=== PATIENT | male | born 1960 | race Caucasian/White ===

== ENCOUNTER 2019-06-12 01:57 | Inpatient (IN) | payer SELFPAY ==
[2019-06-12] MEDS ORDERED: FENTANYL CITR 100 MCG/2 ML ONE (02:16)
[2019-06-12 02:28] LABS: Absolute Lymphocytes (CBC) 2.4 K/uL (0.7-4.9); Basophils % 0.3 % (0-1.3); Hematocrit 46.2 % (39.6-49.0); Lymphocytes % 32.2 % (15.3-44.8); MPV 8.5 fL (7.6-11.3); RBC Red Blood Cell Count 5.22 M/uL (4.33-5.43)
[2019-06-12 02:31] LABS: Protime INR 0.91
[2019-06-12 02:52] LABS: ALT/SGPT 35 U/L (12-78); AST/SGOT 21 U/L (15-37); Alkaline Phosphatase 85 U/L (45-117); BUN Blood Urea Nitrogen 15 mg/dL (7-18); Bicarbonate 27 mmol/L (21-32); Bilirubin Direct 0.2 mg/dL (0-0.2); Bilirubin Total 0.5 mg/dL (0.2-1.0); Glucose Level 117 mg/dL (74-106); Magnesium 2.4 mg/dL (1.8-2.4); NT PRO-BNP 52 pg/mL (<125); Potassium 3.8 mmol/L (3.5-5.1); Protein, Total 7.9 g/dL (6.4-8.2); Sodium Level 140 mmol/L (136-145); Troponin (Emerg Dept Use Only) < 0.02 ng/mL (0.0-0.045)
[2019-06-12] MEDS ORDERED: ASPIRIN 81 MG CHEWABLE TABLET ONE (03:06)
[2019-06-12 03:51] LABS: Urine Blood NEGATIVE (NEG); Urine Glucose NEGATIVE (NEG); Urine pH 5.5 (5.0-7.0)
[2019-06-12 03:52] LABS: Urine Protein NEGATIVE (NEG)
[2019-06-12] MEDS ORDERED: HYDROMORPHONE HCL 1 MG/ML INJ ONE (04:06)
[2019-06-12 04:16] LABS: Barbiturates NEGATIVE (NEGATIVE); Benzodiazepines NEGATIVE (NEGATIVE); Cocaine POSITIVE (NEGATIVE); METHAMPHETAM NEGATIVE (NEGATIVE); Methadone NEGATIVE (NEGATIVE); Opiates NEGATIVE (NEGATIVE); Phencyclidine NEGATIVE (NEGATIVE); THC Cannibis NEGATIVE (NEGATIVE)
[2019-06-12 04:22] LABS: Urine Bacteria <20 /HPF (NONE SEEN); Urine RBC NONE SEEN /HPF (NONE SEEN)
[2019-06-12 04:23] LABS: Urine Culture Reflex Order NOT NEEDED
--- NOTE | 2019-06-12 05:41 | ER ---
Nurse's Notes [facility] Name: Jose Dickson Age: 58 yrs Sex: Male : 1960 Arrival Date: 06/12/2019 Time: 02:00 Bed 5 Private MD: Diagnosis: Chest Pain;Cocaine abuse Presentation: 06/12 02:10 Presenting complaint: Patient states: I am having chest pain that started 30 minutes jb4 ago. It feels like a heart attack. 02:10 Transition of care: patient was not received from another setting of care. Onset of jb4 symptoms was June 12, 2019. Risk Assessment: Do you want to hurt yourself or someone else? Patient reports no desire to harm self or others. Initial Sepsis Screen: Does the patient meet any 2 criteria? No. Patient's initial sepsis screen is negative. Does the patient have a suspected source of infection? No. Patient's initial sepsis screen is negative. Care prior to arrival: None. 02:10 Method Of Arrival: Wheelchair jb4 02:10 Acuity: CARLOS 2 jb4 Historical: - Allergies: 02:10 No Known Allergies; jb4 - Home Meds: 02:10 None [Active]; jb4 - PMHx: 02:10 Myocardial infarction; jb4 - PSHx: 02:10 Heart stents; jb4 - Immunization history:: Adult Immunizations up to date. - Social history:: Smoking status: Patient uses tobacco products, 1/2>/day, Patient uses alcohol, but reports only rare drinking. - Ebola Screening: : No symptoms or risks identified at this time. - Family history:: not pertinent. - Hospitalizations: : No recent hospitalization is reported. Screenin:10 Abuse screen: Denies threats or abuse. Nutritional screening: No deficits noted. jb4 Tuberculosis screening: No symptoms or risk factors identified. Fall Risk IV access (20 points). Total Eppesron Fall Scale indicates No Risk (0-24 pts). Assessment: 02:10 General: Appears in no apparent distress. comfortable, Behavior is cooperative, jb4 anxious. Pain: Complains of pain in chest Pain radiates to left arm Pain currently is 10 out of 10 on a pain scale. Quality of pain is described as pressure, Pain began 30 min ago. Neuro: Level of Consciousness is awake, alert, obeys commands, Oriented to person, place, time, situation. Cardiovascular: Patient's skin is warm and dry. Rhythm is sinus rhythm. Respiratory: Airway is patent Respiratory effort is even, unlabored, Respiratory pattern is regular, symmetrical. GI: No deficits noted. No signs and/or symptoms were reported involving the gastrointestinal system. : No deficits noted. No signs and/or symptoms were reported regarding the genitourinary system. EENT: No deficits noted. No signs and/or symptoms were reported regarding the EENT system. Derm: Skin is intact, Skin is pink, warm \T\ dry. Musculoskeletal: Circulation, motion, and sensation intact. Range of motion: intact in all extremities. 03:11 Reassessment: Patient appears in no apparent distress at this time. Patient and/or jb4 family updated on plan of care and expected duration. Pain level reassessed. Patient is alert, oriented x 3, equal unlabored respirations, skin warm/dry/pink. Patient states feeling better. 04:21 Reassessment: Patient appears in no apparent distress at this time. Patient and/or jb4 family updated on plan of care and expected duration. Pain level reassessed. Patient is alert, oriented x 3, equal unlabored respirations, skin warm/dry/pink. 05:30 Reassessment: Patient appears in no apparent distress at this time. Patient and/or jb4 family updated on plan of care and expected duration. Pain level reassessed. Patient is alert, oriented x 3, equal unlabored respirations, skin warm/dry/pink. Patient states feeling better. 06:00 Reassessment: Patient appears in no apparent distress at this time. Patient and/or jb4 family updated on plan of care and expected duration. Pain level reassessed. Patient is alert, oriented x 3, equal unlabored respirations, skin warm/dry/pink. Vital Signs: 02:10 BP 175 / 112; Pulse 72; Resp 19; Temp 98.0(TE); Pulse Ox 99% on R/A; Weight 99.79 kg jb4 (R); Height 6 ft. 0 in. (182.88 cm); Pain 05/13; 03:11 BP 161 / 102; Pulse 64; Resp 19; Pulse Ox 95% on R/A; jb4 04:09 BP 157 / 100; Pulse 58; Resp 16; Pulse Ox 96% on R/A; jb4 06:00 BP 156 / 94; Pulse 67; Resp 16; Pulse Ox 98% on R/A; jb4 02:10 Body Mass Index 29.84 (99.79 kg, 182.88 cm) jb4 ED Course: 02:00 Patient arrived in ED. cf2 02:04 Owen Barksdale MD is Attending Physician. wa 02:10 Arm band placed on left wrist. jb4 02:10 Patient has correct armband on for positive identification. Placed in gown. Bed in low jb4 position. Call light in reach. Side rails up X 1. assistant chief engineer on. Pulse ox on. NIBP on. 02:10 Patient maintains SpO2 saturation greater than 95% on room air. jb4 02:10 Initial lab(s) drawn, by me, sent to lab. Inserted saline lock: 18 gauge in right jb4 antecubital area, using aseptic technique. Blood collected. 02:13 Clif Porras RN is Primary Nurse. jb4 02:15 Triage completed. jb4 05:39 James Ramirez MD is Hospitalizing Provider. 06:13 No provider procedures requiring assistance completed. Patient admitted, IV remains in jb4 place. Administered Medications: 02:20 Drug: fentaNYL (PF) 75 mcg Route: IVP; Site: right antecubital; aa1 02:54 Follow up: Response: No adverse reaction; Pain is decreased; RASS: Alert and Calm (0) jb4 03:09 Drug: Aspirin Chewable Tablet 324 mg Route: PO; jb4 03:30 Follow up: Response: No adverse reaction jb4 04:14 Drug: Dilaudid 1 mg Route: IVP; Site: right antecubital; jb4 04:44 Follow up: Response: No adverse reaction; Pain is decreased; RASS: Alert and Calm (0) jb4 06:02 Drug: Lovenox 100 mg Route: Sub-Q; Site: right lower abdomen; jb4 06:07 Follow up: Response: No adverse reaction jb4 06:08 Not Given (Patient Refused): Zofran 4 mg IVP once; over 2 minutes jb4 Outcome: 05:41 Decision to Hospitalize by Provider. wa 06:14 Admitted to Tele accompanied by tech, via wheelchair, room 407, with chart, Report jb4 called to KRISTEN Fong 06:14 Condition: stable 06:14 Discharge instructions given to patient, family, Instructed on the need for admit, Demonstrated understanding of instructions. 06:22 Patient left the ED. jb4 Signatures: Erika Ovalles RN RN aa1 Clif Porras RN RN jb4 Owen Barksdale MD MD wa [place], [place] cf2 Corrections: (The following items were deleted from the chart) 03:13 03:11 BP 161 / 102; Pulse 64bpm; Resp 10bpm; Pulse Ox 95% RA; jb4 jb4
--- NOTE | 2019-06-12 05:42 | EDPHYS ---
Physician Documentation [facility] Name: Jose Dickson Age: 58 yrs Sex: Male : 1960 Arrival Date: 06/12/2019 Time: 02:00 Bed 5 Private MD: ED Physician Owen Barksdale HPI: 06/12 03:28 This 58 yrs old Male presents to ER via Wheelchair with complaints of Chest wa Pain. 03:28 The patient or guardian reports chest pain that is located primarily in the substernal wa area. Onset: 30 minute(s) ago. The pain does not radiate. Associated signs and symptoms: Pertinent positives: shortness of breath, Pertinent negatives: abdominal pain, cough, diaphoresis, dizziness, lightheadedness. The chest pain is described as sharp. Duration: The patient or guardian reports a single episode, that is still ongoing. Modifying factors: The symptoms are alleviated by. 03:33 Severity of pain: At its worst the pain was severe in the emergency department the pain wa is unchanged. The patient has experienced similar episodes in the past, a few times. The patient has not recently seen a physician. 58 yo M. states believes he's having a heart attack. h/o stents. has not taken any meds for over 1 year. pain began 30 minutes prior to arrival. . Historical: - Allergies: 02:10 No Known Allergies; jb4 - Home Meds: 02:10 None [Active]; jb4 - PMHx: 02:10 Myocardial infarction; jb4 - PSHx: 02:10 Heart stents; jb4 - Immunization history:: Adult Immunizations up to date. - Social history:: Smoking status: Patient uses tobacco products, 1/2>/day, Patient uses alcohol, but reports only rare drinking. - Ebola Screening: : No symptoms or risks identified at this time. - Family history:: not pertinent. - Hospitalizations: : No recent hospitalization is reported. ROS: 03:34 Constitutional: Negative for fever, chills, and weight loss, Eyes: Negative for injury, wa pain, redness, and discharge, ENT: Negative for injury, pain, and discharge, Neck: Negative for injury, pain, and swelling, Abdomen/GI: Negative for abdominal pain, nausea, vomiting, diarrhea, and constipation, Back: Negative for injury and pain, : Negative for injury, bleeding, discharge, and swelling, MS/Extremity: Negative for injury and deformity, Skin: Negative for injury, rash, and discoloration, Neuro: Negative for headache, weakness, numbness, tingling, and seizure, Psych: Negative for depression, anxiety, suicide ideation, homicidal ideation, and hallucinations. 03:34 Cardiovascular: Positive for chest pain, Negative for edema, orthopnea, palpitations, paroxysmal nocturnal dyspnea. 03:34 Respiratory: Positive for shortness of breath, Negative for hemoptysis, pleurisy. Exam: 03:35 Constitutional: This is a well developed, well nourished patient who is awake, alert, wa and in no acute distress. Head/Face: Normocephalic, atraumatic. Eyes: Pupils equal round and reactive to light, extra-ocular motions intact. Lids and lashes normal. Conjunctiva and sclera are non-icteric and not injected. Cornea within normal limits. Periorbital areas with no swelling, redness, or edema. ENT: Nares patent. No nasal discharge, no septal abnormalities noted. Tympanic membranes are normal and external auditory canals are clear. Oropharynx with no redness, swelling, or masses, exudates, or evidence of obstruction, uvula midline. Mucous membranes moist. Neck: Trachea midline, no thyromegaly or masses palpated, and no cervical lymphadenopathy. Supple, full range of motion without nuchal rigidity, or vertebral point tenderness. No Meningismus. Chest/axilla: Normal chest wall appearance and motion. Nontender with no deformity. No lesions are appreciated. Abdomen/GI: Soft, non-tender, with normal bowel sounds. No distension or tympany. No guarding or rebound. No evidence of tenderness throughout. Back: No spinal tenderness. No costovertebral tenderness. Full range of motion. Skin: Warm, dry with normal turgor. Normal color with no rashes, no lesions, and no evidence of cellulitis. MS/ Extremity: Pulses equal, no cyanosis. Neurovascular intact. Full, normal range of motion. Neuro: Awake and alert, GCS 15, oriented to person, place, time, and situation. Cranial nerves II-XII grossly intact. Motor strength 5/5 in all extremities. Sensory grossly intact. Cerebellar exam normal. Normal gait. Psych: Awake, alert, with orientation to person, place and time. Behavior, mood, and affect are within normal limits. 03:35 Constitutional: The patient appears alert, anxious, restless. 03:35 Cardiovascular: Rate: normal, Rhythm: regular, Pulses: no pulse deficits are appreciated, Heart sounds: normal, Edema: is not appreciated, JVD: is not appreciated. 03:35 Respiratory: the patient does not display signs of respiratory distress, Respirations: normal, Breath sounds: are clear throughout, Respiratory rate: nml Vital Signs: 02:10 BP 175 / 112; Pulse 72; Resp 19; Temp 98.0(TE); Pulse Ox 99% on R/A; Weight 99.79 kg jb4 (R); Height 6 ft. 0 in. (182.88 cm); Pain 10/10; 03:11 BP 161 / 102; Pulse 64; Resp 19; Pulse Ox 95% on R/A; jb4 04:09 BP 157 / 100; Pulse 58; Resp 16; Pulse Ox 96% on R/A; jb4 06:00 BP 156 / 94; Pulse 67; Resp 16; Pulse Ox 98% on R/A; jb4 02:10 Body Mass Index 29.84 (99.79 kg, 182.88 cm) jb4 MDM: 02:04 Patient medically screened. wa 03:37 Differential diagnosis: abnormal EKG, acute myocardial infarction, acute pericarditis, wa anxiety, coronary artery disease chest wall pain, congestive heart failure myocarditis, pancreatitis, pulmonary embolus, stable angina, thoracic aortic disection, unstable angina. 03:38 ED course: no STEMI on initial EKG. BP elevated. will CT. wa 05:35 HEART Score: History: Highly Suspicious (2), ECG: Non specific repolarization wa disturbance / LBTB / PM (1), Age: > 45 and < 65 years (1), Risk Factors: > or = 3 Risk factors for atherosclerotic disease (2), Troponin: < or = 1 x Normal Limit (0), Total Score = 7. The patient was given aspirin in the Emergency Department. Data reviewed: vital signs, nurses notes, lab test result(s), EKG, radiologic studies. Test interpretation: by ED physician or midlevel provider: EKG: interp by me: HR 67. nml axis. no acute STEMI. noted Q waves inferiorly. CXR nml. CT chest/abs/pelvis: no acute process. nml troponin. Response to treatment: the patient's symptoms have markedly improved after treatment. Physician consultation: James Ramirez MD. 05:41 Test interpretation: by ED physician or midlevel provider: Repeat EKG: unchanged from ny initial. 05:42 ED course: pt with stents. has not had meds for over 1 year. ASA given. will give a ny dose of lovenox. counseled against cocaine use. 06/12 02:12 Order name: Basic Metabolic Panel ny 06/12 02:12 Order name: CBC with Diff ny 06/12 02:12 Order name: LFT's ny 06/12 02:12 Order name: Magnesium ny 06/12 02:12 Order name: NT PRO-BNP ny 06/12 02:12 Order name: PT-INR ny 06/12 02:12 Order name: Troponin (emerg Dept Use Only) ny 06/12 02:12 Order name: Urine Drug Screen ny 06/12 02:12 Order name: Urine Microscopic Only ny 06/12 02:16 Order name: Alcohol Level ny 06/12 02:31 Order name: CBC with Automated Diff; Complete Time: 03:02 EDOR 06/12 02:32 Order name: Protime (+INR); Complete Time: 03:02 EDOR 06/12 02:48 Order name: Alcohol Serum/Plasma; Complete Time: 03:02 EDOR 06/12 02:52 Order name: Basic Metabolic Panel; Complete Time: 03:02 EDOR 06/12 02:12 Order name: XRAY Chest (1 view) ny 06/12 02:12 Order name: EKG; Complete Time: 02:13 ny 06/12 02:14 Order name: CT Chest, Abdomen, Pelvis - W/Contrast ny 06/12 02:52 Order name: Liver (Hepatic) Function; Complete Time: 03:02 EDOR 06/12 02:52 Order name: Troponin (Emerg Dept Use Only); Complete Time: 03:02 EDOR 06/12 02:52 Order name: NT PRO-BNP; Complete Time: 03:02 EDOR 06/12 02:52 Order name: Magnesium; Complete Time: 03:01 EDOR 06/12 03:48 Order name: Urine Dipstick--Ancillary (enter results) ar5 06/12 03:52 Order name: Urine Dipstick-Ancillary; Complete Time: 03:53 [facility] 06/12 04:17 Order name: Urine Drug Screen; Complete Time: 05:01 [facility] 06/12 04:23 Order name: Urine Microscopic Only; Complete Time: 05:01 [facility] 06/12 02:12 Order name: Cardiac monitoring; Complete Time: 02:19 ny 06/12 02:12 Order name: EKG - Nurse/Tech; Complete Time: 02:19 ny 06/12 02:12 Order name: IV Saline Lock; Complete Time: 02:19 ny 06/12 02:12 Order name: Labs collected and sent; Complete Time: 02:18 ny 06/12 02:12 Order name: O2 Per Protocol; Complete Time: 02:18 ny 06/12 02:12 Order name: O2 Sat Monitoring; Complete Time: 02:18 ny 06/12 02:12 Order name: Urine Dipstick-Ancillary (obtain specimen); Complete Time: 04:14 ny Administered Medications: 02:20 Drug: fentaNYL (PF) 75 mcg Route: IVP; Site: right antecubital; aa1 02:54 Follow up: Response: No adverse reaction; Pain is decreased; RASS: Alert and Calm (0) jb4 03:09 Drug: Aspirin Chewable Tablet 324 mg Route: PO; jb4 03:30 Follow up: Response: No adverse reaction jb4 04:14 Drug: Dilaudid 1 mg Route: IVP; Site: right antecubital; jb4 04:44 Follow up: Response: No adverse reaction; Pain is decreased; RASS: Alert and Calm (0) jb4 06:02 Drug: Lovenox 100 mg Route: Sub-Q; Site: right lower abdomen; jb4 06:07 Follow up: Response: No adverse reaction jb4 06:08 Not Given (Patient Refused): Zofran 4 mg IVP once; over 2 minutes jb4 Disposition: 06/12/19 05:41 Hospitalization ordered by James Ramirez for Observation. Preliminary diagnosis are Chest Pain, Cocaine abuse. - Bed requested for Telemetry/MedSurg (observation). - Status is Observation. jb4 - Condition is Stable. - Problem is new. - Symptoms have improved. UTI on Admission? No Signatures: Dispatcher [employer] EDOR Erika Ovalles RN RN aa1 Clif Porras RN RN jb4 Owen Barksdale MD MD ny Corrections: (The following items were deleted from the chart) 06:02 05:41 Hospitalization Ordered by James Ramirez MD for Observation. Preliminary jb4 diagnosis is Chest Pain; Cocaine abuse. Bed requested for Telemetry/MedSurg (observation). Status is Observation. Condition is Stable. Problem is new. Symptoms have improved. UTI on Admission? No. wa 06:22 06:02 06/12/2019 05:41 Hospitalization Ordered by James Ramirez MD for Observation. jb4 Preliminary diagnosis is Chest Pain; Cocaine abuse. Bed requested for Telemetry/MedSurg (observation). Status is Observation. Condition is Stable. Problem is new. Symptoms have improved. UTI on Admission? No. jb4
[2019-06-12] MEDS ORDERED: ACETAMINOPHEN 500 MG TAB PO PRN (05:53)
[2019-06-12] MEDS ORDERED: ALPRAZOLAM 0.25 MG TABLET PO PRN (05:53)
[2019-06-12] MEDS ORDERED: ENOXAPARIN 100 MG/ML SYR SQ ONE (05:59)
[2019-06-12 06:43] VITALS: O2SAT 98
[2019-06-12] MEDS ORDERED: MORPHINE 2 MG/ML SYR IV PRN (06:45)
[2019-06-12] MEDS ORDERED: MORPHINE 2 MG/ML SYR IV ONE (06:45)
[2019-06-12] MEDS ORDERED: CLOPIDOGREL 75 MG TABLET PO ONE (06:45)
[2019-06-12] MEDS ORDERED: dexAMETHasone 10 MG/ML VIAL IV ONE (06:50)
[2019-06-12] MEDS: NITROGLYCERIN 0.1 MG/HR (2.5 MG) PATCH TD SCH (07:22)
--- NOTE | 2019-06-12 07:30 | P.HP ---
Certification for Inpatient Patient admitted to: Observation With expected LOS: <2 Midnights Patient will require the following post-hospital care: None Practitioner: I am a practitioner with admitting privileges, knowledge of patient current condition, hospital course, and medical plan of care. Services: Services provided to patient in accordance with Admission requirements found in Title 42 Section 412.3 of the Code of Federal Regulations Patient History Date of Service: 06/12/19 Reason for admission: Chest pain rule out acute coronary syndrome History of Present Illness: Patient is a 58-year-old gentleman who has history of Coronary artery disease. He had a prior cardiac catheterization here at our hospital which revealed a RCA occlusion as well as 90% lad lesion which was stented. Patient has not been compliant with his medications as people at work have told him that he does not need his medicines for his heart problems. 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 Unfortunately, with patient's degree of heart disease not taking his medications could prove to cause severe morbidity or even mortality. He has been using cocaine per his urine drug screen. He started having chest pain which was not resolving even after taking aspirin. He came into the ER for further evaluation. He had a CT of the chest, abdomen, and pelvis which was negative. His EKG did not reveal any acute pathology. His troponins have been negative. The admitted to the hospital for unstable angina. Will start him on aspirin, Plavix, statin, Lovenox, nitropaste, and will get Cardiology consultation. Will discuss with Cardiology regarding plan of care and patient may need to be moved to an inpatient hospitalization. Allergies No Known Allergies Allergy (Verified 06/12/19 06:31) - Past Medical/Surgical History Has patient received pneumonia vaccine in the past: No -: Coronary artery disease -: Cardiac catheterization x2 with 2 stents placed - Family History Father Family History: Reviewed- Non-Contributory - Social History Smoking Status: Current every day smoker Alcohol use: Yes CD- Drugs: Yes Caffeine use: Yes Place of Residence: Home Review of Systems 10-point ROS is otherwise unremarkable Physical Examination - Vital Signs Temperature: 97.1 F Blood Pressure: 170/90 Pulse: 60 Respirations: 16 Pulse Ox (%): 99 - Physical Exam General: Alert, In no apparent distress, Oriented x3 HEENT: Atraumatic, PERRLA, Mucous membr. moist/pink, EOMI, Sclerae nonicteric Neck: Supple, 2+ carotid pulse no bruit, No LAD, Without JVD or thyroid abnormality Respiratory: Clear to auscultation bilaterally, Normal air movement Cardiovascular: Regular rate/rhythm, Normal S1 S2, No murmurs Gastrointestinal: Normal bowel sounds, Soft and benign, Non-distended, No tenderness Musculoskeletal: No contractures, No tenderness Integumentary: No rashes Neurological: Normal gait, Normal speech, Normal strength at 5/5 x4 extr, Normal tone, Sensation intact, Cranial nerves 3-12 intact, Normal affect Lymphatics: No axilla or inguinal lymphadenopathy - Studies Laboratory Data (last 24 hrs) 06/12/19 02:00: PT 10.8, INR 0.91 06/12/19 02:00: WBC 7.5, Hgb 16.0, Hct 46.2, Plt Count 255 06/12/19 02:00: Sodium 140, Potassium 3.8, BUN 15, Creatinine 1.10, Glucose 117 H, Magnesium 2.4, Total Bilirubin 0.5, AST 21, ALT 35, Alkaline Phosphatase 85 Assessment & Plan - Problems (Diagnosis) (1) Unstable angina Current Visit: Yes Status: Acute (2) Cocaine abuse Current Visit: Yes Status: Acute (3) Coronary artery disease Current Visit: Yes Status: Acute (4) Noncompliance Current Visit: Yes Status: Acute - Plan 1. Serial troponins and EKG 2. Cardiology consultation 3. Echocardiogram 4. Anti-platelet therapy, anti coagulation, beta-jenna, statin, and O2 as needed 5. IV morphine for pain 6. Nitro p.r.n. 7. Refrain from cocaine use going for did 8. We may need to change to inpatient stay if plan is to do any interventions per patient's chest discomfort 9. GI and DVT prophylaxis Discharge Plan: Home Plan to discharge in: 48 Hours - Advance Directives Does patient have a Living Will: No Does patient have a Durable POA for Healthcare: No - Code Status/Comfort Care Code Status Assessed: Yes Code Status: Full Code Critical Care: No Time Spent Managing PTS Care (In Minutes): 45
[2019-06-12 07:40] LABS: Troponin I 1.26 ng/mL (0.0-0.045)
[2019-06-12] MEDS ORDERED: ENOXAPARIN 100 MG/ML SYR SQ SCH (09:00)
--- NOTE | 2019-06-12 09:10 | RAD REPORT ---
EXAM DESCRIPTION: RAD - Chest Single View - 06/12/2019 2:36 am CLINICAL HISTORY: Chest pain COMPARISON: December 2012 TECHNIQUE: AP portable chest image was obtained 0234 hours . FINDINGS: Lungs are clear. Heart and vasculature are normal. No measurable pleural effusion and no p neumothorax. No acute bony abnormality seen. No acute aortic findings suspected. IMPRESSION: No acute cardiopulmonary process. No suspicious interval change
[2019-06-12] MEDS: METOPROLOL TAR 50 MG TAB PO SCH ×2 (09:43→20:28)
[2019-06-12] MEDS: ASPIRIN EC 81 MG TAB PO SCH (09:43)
[2019-06-12] MEDS ORDERED: INFLUENZA VACCINE (for 3y+) 0.5 ML DOSE IMVAC ONE (12:00)
--- NOTE | 2019-06-12 14:43 | P.PN ---
Subjective Date of Service: 06/12/19 Chief Complaint: Chest pain rule out acute coronary syndrome Patient is 58 years of age with a significant history of coronary artery disease with a sudden onset of severe chest pain he has non compliant with his medication urine drug screen was positive for cocaine he still having chest pain which is 4/10 feels hot and sweaty Review of Systems 10-point ROS is otherwise unremarkable Physical Examination - Vital Signs Temperature: 98.0 F Blood Pressure: 142/86 Pulse: 74 Respirations: 18 Pulse Ox (%): 95 - Physical Exam General: Alert, In no apparent distress, Oriented x3 Respiratory: Clear to auscultation bilaterally Cardiovascular: No edema, Normal pulses, Regular rate/rhythm Gastrointestinal: Normal bowel sounds, Soft and benign - Studies Laboratory Data (last 24 hrs) 06/12/19 02:00: PT 10.8, INR 0.91 06/12/19 02:00: WBC 7.5, Hgb 16.0, Hct 46.2, Plt Count 255 06/12/19 02:00: Sodium 140, Potassium 3.8, BUN 15, Creatinine 1.10, Glucose 117 H, Magnesium 2.4, Total Bilirubin 0.5, AST 21, ALT 35, Alkaline Phosphatase 85 Assessment & Plan - Problems (Diagnosis) (1) Non-STEMI (non-ST elevated myocardial infarction) Current Visit: Yes Status: Acute Plan: Patient is 58 years of age admitted with sudden onset of chest pain he has non STEMI SD EKG shows old inferior infarct no acute changes. Repeat EKG has been ordered labs reviewed he still has a little pain patient is fully anti coagulated continue to monitor pain relief he is on Plavix beta-blockers and fully anti coagulated scheduled to have a cardiac catheterization chest x-ray clear CT scan unremarkable
[2019-06-12] MEDS ORDERED: TEMAZEPAM 15 MG CAP PO PRN (19:48)
[2019-06-12] MEDS: ENOXAPARIN 100 MG/ML SYR SQ SCH (20:29)
--- NOTE | 2019-06-12 23:32 | CON ---
Date of Consultation: 06/12/2019 Reason For Consultation: Non-ST elevation myocardial infarction. History Of Present Illness: Mr. Dickson is 58, has had a history of coronary artery disease. He had stent in 2013 of his LAD. He had another stent in 2017. At one point, he had a cardiac arrest. He has been basically lost to follow up, comes in with substernal chest pressure radiating to the back a nd the arms with some diaphoresis. No nausea, no shortness of breath. Denied PND, orthopnea, pedal edema, palpitation, or syncope. Symptoms have been going on intermittently for about 2 days. He was found to have cocaine in his blood. His troponin was 1.38. Mr. Dickson has not seen anybody for about 2 years from a cardiac standpoint and has not taken his med ications for at least 1 year. Review of Systems: Positive for cocaine use. Social History: Negative. Family History: Negative. Medications: At home at this point are none. Physical Examination: Vital Signs: Stable, afebrile. HEENT: Negative. Neck: Supple with no bruit. Chest: Clear to auscultation and percussion. Cardiac: Revealed a regular rhythm and rate. No murmurs, gallops, or rubs. Abdomen: Benign. Extremities: Revealed no clubbing, cyanosis, or edema. Impression And Plan: Non-ST elevation myocardial infarction, most likely secondary to restenosis of his LAD stent, possibly thrombosis from cocaine use. I agree with aspirin, Plavix, beta jenna, and Lovenox. Patient needs to have another heart catheterization. He was very hesitant to agree to the catheterization and wants to go home. He claims that he wants to be compliant from now on, but want s to have to have a catheterization done as an outpatient. I personally do not agree with this. I t hink he needs to stay here until Friday and have a heart catheterization to define his coronary anato my. Nevertheless, I did give him a prescription already for beta blockers, Lipitor, Plavix, and aspi rin just in case he goes home. He was counseled on the use of drugs. Case was discussed with Dr. Sean cross. I think the patient decides to leave. We need to make a sign and against medical advice note . NB/MODL Voice ID: [id number] Report ID: [id number]
[2019-06-13] MEDS ORDERED: ZOLPIDEM TARTRATE 5 MG TABLET PO PRN (02:50)
[2019-06-13] MEDS ORDERED: ATORVASTATIN 10 MG TAB PO SCH (02:50)
[2019-06-13] MEDS ORDERED: SODIUM CHLORIDE 0.9% 10ML INJ IV PRN (02:50)
[2019-06-13] MEDS ORDERED: PANTOPRAZOLE 40 MG INJ IVP ONE (02:50)
[2019-06-13] MEDS ORDERED: ATORVASTATIN 10 MG TAB PO ONE (03:16)
[2019-06-13 06:24] VITALS: BMI 25.9
[2019-06-13] MEDS ORDERED: PANTOPRAZOLE 40MG TABLET PO SCH (06:30)
[2019-06-13] MEDS ORDERED: CLOPIDOGREL 75 MG TABLET PO SCH (09:00)
[2019-06-13 09:54] VITALS: BP 123/78; TEMP 97.9
[2019-06-13] MEDS: NITROGLYCERIN 0.1 MG/HR (2.5 MG) PATCH TD SCH (10:14)
[2019-06-13] MEDS: METOPROLOL TAR 50 MG TAB PO SCH (10:17)
[2019-06-13] MEDS: ENOXAPARIN 100 MG/ML SYR SQ SCH (10:17)
[2019-06-13] MEDS: ASPIRIN EC 81 MG TAB PO SCH (10:17)
--- NOTE | 2019-06-13 10:59 | P.PN ---
Subjective Date of Service: 06/13/19 Chief Complaint: Acute myocardial infarction Patient in admitted with non ST elevation OH denies any chest pain today for shortness of breath Review of Systems Unremarkable Physical Examination - Vital Signs Temperature: 97.9 F Blood Pressure: 123/78 Pulse: 75 Respirations: 16 Pulse Ox (%): 97 - Physical Exam General: Alert, Oriented x3 Neck: Supple Respiratory: Clear to auscultation bilaterally Cardiovascular: No edema, Regular rate/rhythm, Normal S1 S2 Assessment & Plan - Problems (Diagnosis) (1) Non-STEMI (non-ST elevated myocardial infarction) Current Visit: Yes Status: Acute Plan: Patient admitted with a nn STemi OH/he has no more chest pain vital signs all stable medication reviewed possible cardiac catheterization
--- NOTE | 2019-06-13 12:47 | EKG ---
Test Date: 2019-06-12 Test Time: 10:58:58 [place] Shade Sewer: Candelario ETIENNE MEASUREMENT RESULTS: Intervals: Rate: 69 NV: 152 QRSD: 102 QT: 416 QTc: 445 [place]: P: 67 NV: 152 QRS: 0 T: 2 INTERPRETIVE STATEMENTS: Normal sinus rhythm Possible Left atrial enlargement Incomplete right bundle branch block Inferior infarct, age undetermined Abnormal ECG Compared to ECG 06/12/2019 03:10:34 Incomplete right bundle-branch block now present Myocardial infarct finding still present Electronically Signed On 06-13-19 12:45:14 CRYSTAL SYRUP MAKER by Lazaro Vasquez
--- NOTE | 2019-06-13 12:47 | EKG ---
Test Date: 2019-06-12 Test Time: 02:07:11 Social Psychologist: MANE MEASUREMENT RESULTS: Intervals: Rate: 67 [place]: 148 QRSD: 96 QT: 450 QTc: 475 [place]: P: 80 [place]: 148 QRS: 34 T: 76 INTERPRETIVE STATEMENTS: Normal sinus rhythm Possible Inferior infarct, age undetermined Abnormal ECG Compared to ECG 12/11/2012 07:50:16 Sinus bradycardia no longer present Myocardial infarct finding still present Electronically Signed On 06-13-19 12:45:20 INJURY/SAFETY HAZARD ASSESSMENT by Lazaro Vasquez
--- NOTE | 2019-06-13 12:47 | EKG ---
Test Date: 2019-06-12 Test Time: 03:10:34 Biomedical Equipment Specialist: KORIN MEASUREMENT RESULTS: Intervals: Rate: 61 NM: 152 QRSD: 102 QT: 464 QTc: 467 [place]: P: 70 NM: 152 QRS: 19 T: 69 INTERPRETIVE STATEMENTS: Normal sinus rhythm Inferior infarct, age undetermined Abnormal ECG Compared to ECG 06/12/2019 02:07:11 No significant changes Electronically Signed On 06-13-19 12:45:19 OCEAN FISHING GUIDE by Lazaro Vasquez
--- NOTE | 2019-06-13 16:48 | P.DS ---
Admission Date: 06/13/19 Discharge Date: 06/13/19 Disposition: AMA-LEFT AGAINST MEDICAL ADVIC Discharge Condition: FAIR Reason for Admission: Acute myocardial infarction - Problems (1) Non-STEMI (non-ST elevated myocardial infarction) Status: Acute Brief History of Present Illness: Patient is 58 years of age non compliant with his medication admitted with the chest pain and non ST elevation IA Hospital Course: See progress note from today patient left against medical advice he was informed that he had a serious heart attack diffuse cardiac catheterization was also seen by Cardiology Vital Signs/Physical Exam: Temp Pulse Resp BP Pulse Ox 97.9 F 75 16 123/78 97 06/13/19 10:59 06/13/19 10:59 06/13/19 10:59 06/13/19 10:59 06/13/19 10:59 Laboratory Data at Discharge: WBC 7.5 K/uL (4.3-10.9) 06/12/19 02:00 Hgb 16.0 g/dL (13.6-17.9) 06/12/19 02:00 Hct 46.2 % (39.6-49.0) 06/12/19 02:00 Plt Count 255 K/uL (152-406) 06/12/19 02:00 PT 10.8 SECONDS (9.5-12.5) 06/12/19 02:00 INR 0.91 06/12/19 02:00 Sodium 140 mmol/L (136-145) 06/12/19 02:00 Potassium 3.8 mmol/L (3.5-5.1) 06/12/19 02:00 BUN 15 mg/dL (7-18) 06/12/19 02:00 Creatinine 1.10 mg/dL (0.55-1.3) 06/12/19 02:00 Glucose 117 mg/dL (74-106) H 06/12/19 02:00 Magnesium 2.4 mg/dL (1.8-2.4) 06/12/19 02:00 Total Bilirubin 0.5 mg/dL (0.2-1.0) 06/12/19 02:00 AST 21 U/L (15-37) 06/12/19 02:00 ALT 35 U/L (12-78) 06/12/19 02:00 Alkaline Phosphatase 85 U/L (45-117) 06/12/19 02:00 Troponin I 11.20 ng/mL (0.0-0.045) H* D 06/12/19 12:41 Triglycerides 55 mg/dL (<150) 06/12/19 06:53 Cholesterol 159 mg/dL (<200) 06/12/19 06:53 HDL Cholesterol 43 mg/dL (40-60) 06/12/19 06:53 Cholesterol/HDL Ratio 3.70 06/12/19 06:53 Home Medications: NK [No Home Meds] 06/12/19
[2019-06-13] MEDS ORDERED: ATORVASTATIN 20 MG TAB PO SCH (21:00)
--- OUTSIDE RECORDS SUMMARY | 2019-06-14 06:09 | XMS REPORT ---
:1960 [facility] Address [address] Moore [address] [place] [id number] Care Team Providers Name Role Phone UNKNOWN, REFFERING Primary Care Provider Unavailable Problems This patient has no known problems. Allergies, Adverse Reactions, Alerts This patient has no known allergies or adverse reactions. Medications This patient has no known medications. Encounters Start End Encounter Admission Attending Care Care Encounter Date/Time Date/Time Type Type Clinicians Facility Department ID 2017-03-05 2017-03-05 Outpatient E [facility] [id number] 14:27:00 14:27:00
--- NOTE | 2019-06-14 13:08 | RAD REPORT ---
EXAM DESCRIPTION: CT - Chest Abdomen Pelvis W Cont - 06/12/2019 4:37 am CLINICAL HISTORY: The patient is 58 years old and is Male; CHEST PAIN TECHNIQUE: Axial computed tomography images of the chest, abdomen and pelvis with intravenous contra st. Sagittal and coronal reformatted images were created and reviewed. This CT exam was performed using one or more of the following dose reduction techniques: automated exposure control, adjustme nt of the mA and/or kV according to patient size, and/or use of iterative reconstruction technique. COMPARISON: No relevant prior studies available. FINDINGS: CHEST: LUNGS: Minimal dependent densities in the lung bases are present. PLEURAL SPACE: Unremarkable. No significant effusion. No pneumothorax. HEART: No cardiomegaly. No pericardial effusion. ABDOMEN: LIVER: The liver is mildly fatty. GALLBLADDER AND BILE DUCTS: The gallbladder is not well distended. PANCREAS: No ductal dilation. No mass. SPLEEN: Unremarkable. ADRENALS: Unremarkable. No mass. KIDNEYS AND URETERS: A small lower pole right renal cyst measuring 2 cm is present. The kidneys enhance symmetrically. No hydronephrosis or hydroureter of either kidney. STOMACH AND BOWEL: The stomach is distended with food contents. The small bowel is normal in fady iber. Stool is present throughout the colon. There is no mucosal thickening or evidence of bowel obst ruction. PELVIS: APPENDIX: The appendix is normal in caliber without surrounding inflammation. BLADDER: Unremarkable. No mass. REPRODUCTIVE: Unremarkable as visualized. CHEST, ABDOMEN and PELVIS: INTRAPERITONEAL SPACE: Unremarkable. No significant fluid collection. No free air. BONES/JOINTS: No acute fracture. SOFT TISSUES: There are small bilateral fat containing inguinal hernias. VASCULATURE: Minimal atherosclerosis of the vasculature is present. No aortic aneurysm. LYMPH NODES: Unremarkable. No enlarged lymph nodes. IMPRESSION: No acute findings on this contrasted CT of the chest, abdomen and pelvis to explain the patient's symptoms. Electronically signed by: Amber Roy MD 06/12/2019 4:26 AM HEEL LIFT GOUGER Due to temporary technical issues with the PACS/Fluency reporting system, reports are being signed by the in house radiologist as a courtesy to ensure prompt reporting. The interpreting radiologist is f ully responsible for the content of the report.
--- NOTE | 2019-06-14 15:56 | EKG ---
Test Date: 2019-06-13 Test Time: 08:39:17 Opto Mechanical Engineer: TO P MEASUREMENT RESULTS: Intervals: Rate: 54 [place]: 170 QRSD: 106 QT: 466 QTc: 441 [place]: P: 74 CO: 170 QRS: 12 T: -24 INTERPRETIVE STATEMENTS: Sinus bradycardia Inferior infarct, age undetermined Abnormal ECG Compared to ECG 06/12/2019 10:58:58 Sinus rhythm no longer present Incomplete right bundle-branch block no longer present Myocardial infarct finding still present Electronically Signed On 06-14-19 15:54:43 ELECTRONICS DESIGN ENGINEER by Abdon Leon
== END 2019-06-13 12:21 | disposition left against medical advice (07) | DRG 282 ==
LOC: ER 01:57 → 4TH 06:03 → OBSVTOIN 06-13 11:35
PROVIDERS: ADMIT Hospitalist; ATTEND Hospitalist
DX: I21.4 Non-ST elevation (NSTEMI) myocardial infarction (principal); I25.10 Atherosclerotic heart disease of native coronary artery without angina pectoris; F17.210 Nicotine dependence, cigarettes, uncomplicated; Z91.14 Patient's other noncompliance with medication regimen; F14.10 Cocaine abuse, uncomplicated; Z53.29 Procedure and treatment not carried out because of patient's decision for other reasons; Z95.5 Presence of coronary angioplasty implant and graft
CPT/HCPCS: 36415; 71045; 71260; 74177; 80048; 80061; 80076; 80307; 80320; 81003; 81015; 83735; 83880; 84484; 85025; 85610; 93005; 96374; 96375; 99285; C9113; G0378; J1100; J1170; J1650; J2270; J3010; Q9966

== ENCOUNTER 2021-03-14 23:03 | Emergency (ER) | payer SELFPAY ==
--- OUTSIDE RECORDS SUMMARY | 2021-03-14 23:06 | XMS REPORT | Continuity of Care Document ---
:1960 Author Organization [facility] t Address [address] [place] [address] Care Team Providers Name Role Phone UNKNOWN Primary Care Physician Unavailable Singer VICTOR Attending Clinician Carmen Tamez Attending Clinician Problems This patient has no known problems. Allergies, Adverse Reactions, Alerts This patient has no known allergies or adverse reactions. Medications This patient has no known medications. Procedures This patient has no known procedures. Encounters Start End Encounter Admission Attending Care Care Encounter Source Date/Time Date/Time Type Type Clinicians Facility Department ID 2020-07-12 2020-07-12 Emergency Dirk KYJHONNY [id number] 09:57:00 11:25:00 Tj Triana [id number] [place] [id number] [place] [id number] 2017-03-05 2017-03-05 Outpatient E [facility] DONOVAN [id number] [address] 14:27:00 14:27:00 [facility] Results This patient has no known results.
[2021-03-15] MEDS ORDERED: DIPHENHYDRAMINE 50 MG/ML VIAL ONE (00:45)
[2021-03-15] MEDS ORDERED: FAMOTIDINE 20 MG/2 ML VIAL IV ONE (00:45)
[2021-03-15] MEDS ORDERED: METHYLPREDNISOLONE 125 MG INJ ONE (00:45)
--- NOTE | 2021-03-15 00:57 | EDPHYS ---
Physician Documentation [facility] Name: Jose Dickson Age: 60 yrs Sex: Male : 1960 Arrival Date: 03/14/2021 Time: 23:07 Bed DIS11 Private MD: ED Physician Orion Sommer HPI: 03/15 00:15 This 60 yrs old Male presents to ER via Ambulatory with complaints of Rash. jr8 00:15 The patient's rash thought to be caused by an unknown cause. The rash is located on the jr8 face, chest and neck. The rash can be described as erythematous, macular, papular. Onset: The symptoms/episode began/occurred acutely, today. Associated signs and symptoms: Pertinent positives: burning sensation. Severity of symptoms: At their worst the symptoms were moderate in the emergency department the symptoms are unchanged. Treatment given at home: Benadryl. The patient has not experienced similar symptoms in the past. The patient has not recently seen a physician. 00:15 Patient stated that while at work started to feel a burning sensation around the brim jr8 of his head where his hard hat was. Noticed that there is a rash there. Since then has progressively gotten worse and spread to the entire top of the head along with the neck and chest tried Benadryl at home without any relief. Denies any new foods, detergents, close, work and/or environmental exposures. Historical: - Allergies: 03/14 23:55 No Known Allergies; kg - Home Meds: 23:55 metoprolol tartrate Oral [Active]; Plavix Oral [Active]; atorvastatin oral [Active]; kg - PMHx: 23:55 Myocardial infarction; Hypertensive disorder; Hypercholesterolemia; kg - PSHx: 23:55 Cardiac stents; Left forearm sx; kg - Immunization history:: Adult Immunizations not up to date, Client reports receiving the 2nd dose of the Covid vaccine, Date received: November 15, 2020 Jay Client reports receiving the 1st dose of the Covid vaccine, October 20, 2020 Karie. - Social history:: Smoking status: Patient reports the use of cigarette tobacco products, smokes one pack cigarettes per day. Patient uses alcohol, occasionally. ROS: 03/15 00:15 Eyes: Negative for injury, pain, redness, and discharge, ENT: Negative for injury, jr8 pain, and discharge, Neck: Negative for injury, pain, and swelling, Cardiovascular: Negative for chest pain, palpitations, and edema, Respiratory: Negative for shortness of breath, cough, wheezing, and pleuritic chest pain, Abdomen/GI: Negative for abdominal pain, nausea, vomiting, diarrhea, and constipation, Back: Negative for injury and pain, MS/Extremity: Negative for injury and deformity, Neuro: Negative for headache, weakness, numbness, tingling, and seizure. Skin: Positive for rash. Exam: 00:15 Constitutional: This is a well developed, well nourished patient who is awake, alert, jr8 and in no acute distress. ENT: Nares patent. No nasal discharge, no septal abnormalities noted. Tympanic membranes are normal and external auditory canals are clear. Oropharynx with no redness, swelling, or masses, exudates, or evidence of obstruction, uvula midline. Mucous membranes moist. Cardiovascular: Regular rate and rhythm with a normal S1 and S2. No gallops, murmurs, or rubs. Normal PMI, no JVD. No pulse deficits. Respiratory: Lungs have equal breath sounds bilaterally, clear to auscultation and percussion. No rales, rhonchi or wheezes noted. No increased work of breathing, no retractions or nasal flaring. Abdomen/GI: Soft, non-tender, with normal bowel sounds. No distension or tympany. No guarding or rebound. No evidence of tenderness throughout. Back: No spinal tenderness. No costovertebral tenderness. Full range of motion. MS/ Extremity: Pulses equal, no cyanosis. Neurovascular intact. Full, normal range of motion. Neuro: Awake and alert, GCS 15, oriented to person, place, time, and situation. Cranial nerves II-XII grossly intact. Motor strength 5/5 in all extremities. Sensory grossly intact. Cerebellar exam normal. Normal gait. 00:15 Skin: rash a moderate rash is noted, rash can be described as erythematous, macular, papular, urticarial. Vital Signs: 03/14 23:52 BP 134 / 103; Pulse 98; Resp 20; Temp 98.3; Pulse Ox 99% on R/A; Weight 95.25 kg; kg Height 6 ft. 1 in. (185.42 cm); Pain 10/10; 03/15 01:15 BP 135 / 92; Pulse 67; Resp 16 S; Temp 96.1(O); Pulse Ox 97% ; bb 03/14 23:52 Body Mass Index 27.71 (95.25 kg, 185.42 cm) kg MDM: 00:07 Patient medically screened. jr8 00:15 Data reviewed: vital signs, nurses notes. Data interpreted: Pulse oximetry: on room air jr8 is 99 %. Interpretation: normal. Counseling: I had a detailed discussion with the patient and/or guardian regarding: the historical points, exam findings, and any diagnostic results supporting the discharge/admit diagnosis, the need for outpatient follow up, a family practitioner, to return to the emergency department if symptoms worsen or persist or if there are any questions or concerns that arise at home. 00:55 ED course: Patient feeling much better. Rash is starting to decrease. We will send jr8 patient home on steroids. Continue Benadryl at home as well.. 03/15 00:15 Order name: IV Start; Complete Time: 01:06 jr8 Administered Medications: 00:37 Drug: SOLU-Medrol (methylPrednisoLONE) 125 mg Route: IVP; Site: left hand; bb 01:06 Follow up: Response: No adverse reaction bb 00:37 Drug: Benadryl (diphenhydrAMINE) 25 mg Route: IVP; Site: left hand; bb 01:06 Follow up: Response: No adverse reaction bb 00:37 Drug: Pepcid (famotidine) 20 mg Route: IVP; Site: left hand; bb 01:06 Follow up: Response: No adverse reaction bb 01:06 Drug: predniSONE 60 mg Route: PO; bb 01:06 Follow up: Response: Medication administered at discharge. bb Disposition: : Co-signature as Attending Physician, Orion Sommer MD. rn Disposition Summary: 03/15/21 00:56 Discharge Ordered Location: Home jr8 Problem: new jr8 Symptoms: have improved jr8 Condition: Stable jr8 Diagnosis - Rash and other nonspecific skin eruption jr8 Followup: jr8 - With: Private Physician - When: 1 week - Reason: Recheck today's complaints, Continuance of care, Re-evaluation by your physician Discharge Instructions: - Discharge Summary Sheet jr8 - Hives jr8 - Rash, Adult jr8 Forms: - Medication Reconciliation Form jr8 - Work release form as - Thank You Letter jr8 - Antibiotic Education jr8 - Prescription Opioid Use jr8 Prescriptions: - Prednisone 20 mg Oral Tablet - take 3 tablets by ORAL route once daily for 5 days; 15 tablet; Refills: 0, jr8 Product Selection Permitted Signatures: Annamarie Shaw, RN RN bb Orion Sommer MD MD rn Roszak, Josh, PA PA jr8 Lani Alcazar RN RN kg
--- NOTE | 2021-03-15 00:57 | ER ---
Nurse's Notes [facility] Name: Jose Dickson Age: 60 yrs Sex: Male : 1960 Arrival Date: 03/14/2021 Time: 23:07 Bed DIS11 Private MD: Diagnosis: Rash and other nonspecific skin eruption Presentation: 03/14 23:52 Chief complaint: Patient states: Rash on head and spread to neck, chest. Pt stated it kg feels like bees stinging me. Starting 03/13. Coronavirus screen: Client denies travel out of the [place] in the last 14 days. At this time, unable to obtain information related to travel outside the [place] At this time, the client does not indicate any symptoms associated with coronavirus-19. Ebola Screen: Patient negative for fever greater than or equal to 101.5 degrees Fahrenheit, and additional compatible Ebola Virus Disease symptoms Patient denies exposure to infectious person. Patient denies travel to an Ebola-affected area in the 21 days before illness onset. Initial Sepsis Screen: Does the patient meet any 2 criteria? No. Patient's initial sepsis screen is negative. Does the patient have a suspected source of infection? No. Patient's initial sepsis screen is negative. Risk Assessment: Do you want to hurt yourself or someone else? Patient reports no desire to harm self or others. Onset of symptoms was March 13, 2021. 23:52 Method Of Arrival: Ambulatory kg 23:52 Acuity: CARLOS 4 kg Triage Assessment: 23:55 General: Appears in no apparent distress. Behavior is calm, cooperative, appropriate kg for age, quiet. Pain: Complains of pain in Head, Neck, Chest, Back Pain currently is 10 out of 10 on a pain scale. at worst was 10 out of 10 on a pain scale. level that patient reports is acceptable is 3 out of 10 on a pain scale. Quality of pain is described as stinging, Pain began 2-3 days ago. Historical: - Allergies: 23:55 No Known Allergies; kg - Home Meds: 23:55 metoprolol tartrate Oral [Active]; Plavix Oral [Active]; atorvastatin oral [Active]; kg - PMHx: 23:55 Myocardial infarction; Hypertensive disorder; Hypercholesterolemia; kg - PSHx: 23:55 Cardiac stents; Left forearm sx; kg - Immunization history:: Adult Immunizations not up to date, Client reports receiving the 2nd dose of the Covid vaccine, Date received: November 15, 2020 Karie Client reports receiving the 1st dose of the Covid vaccine, October 20, 2020 Modernshania. - Social history:: Smoking status: Patient reports the use of cigarette tobacco products, smokes one pack cigarettes per day. Patient uses alcohol, occasionally. Screenin/12 00:00 Abuse screen: Denies threats or abuse. Denies injuries from another. Nutritional kg screening: No deficits noted. Tuberculosis screening: No symptoms or risk factors identified. Fall Risk None identified. Assessment: 00:15 General: Appears in no apparent distress. Behavior is calm, cooperative. Neuro: Level bb of Consciousness is awake, alert, obeys commands, Oriented to person, place, time, situation. Cardiovascular: Capillary refill < 3 seconds Patient's skin is warm and dry. Respiratory: Respiratory effort is even, unlabored, Respiratory pattern is regular. GI: No signs and/or symptoms were reported involving the gastrointestinal system. Derm: Skin is pink, warm \T\ dry. Rash noted that is red on head and chest. Musculoskeletal: Circulation, motion, and sensation intact. 01:15 Reassessment: Patient is alert, oriented x 3, equal unlabored respirations, skin bb warm/dry/pink. pt verbalized understanding of and agrees to plan of care discharge instructions given pt ambulated with steady gait to exit. Vital Signs: 03/14 23:52 BP 134 / 103; Pulse 98; Resp 20; Temp 98.3; Pulse Ox 99% on R/A; Weight 95.25 kg; kg Height 6 ft. 1 in. (185.42 cm); Pain 10/10; 03/15 01:15 BP 135 / 92; Pulse 67; Resp 16 S; Temp 96.1(O); Pulse Ox 97% ; bb 03/14 23:52 Body Mass Index 27.71 (95.25 kg, 185.42 cm) kg ED Course: 03/14 23:07 Patient arrived in ED. bp1 23:55 Triage completed. kg 23:55 Arm band placed on left wrist. kg 03/15 00:00 Patient has correct armband on for positive identification. kg 00:07 Raul Velazquez PA is PHCP. jr8 00:07 Orion Sommer MD is Attending Physician. jr8 00:15 Inserted saline lock: 20 gauge in left hand, using aseptic technique. bb 00:21 Annamarie Shaw, RN is Primary Nurse. bb 01:16 IV discontinued, intact, bleeding controlled, No redness/swelling at site. Pressure bb dressing applied. 01:16 No provider procedures requiring assistance completed. bb Administered Medications: 00:37 Drug: SOLU-Medrol (methylPrednisoLONE) 125 mg Route: IVP; Site: left hand; bb 01:06 Follow up: Response: No adverse reaction bb 00:37 Drug: Benadryl (diphenhydrAMINE) 25 mg Route: IVP; Site: left hand; bb 01:06 Follow up: Response: No adverse reaction bb 00:37 Drug: Pepcid (famotidine) 20 mg Route: IVP; Site: left hand; bb 01:06 Follow up: Response: No adverse reaction bb 01:06 Drug: predniSONE 60 mg Route: PO; bb 01:06 Follow up: Response: Medication administered at discharge. bb Outcome: 00:56 Discharge ordered by . jr8 01:16 Discharged to home ambulatory. bb 01:16 Condition: stable 01:16 Discharge instructions given to patient, Instructed on discharge instructions, follow up and referral plans. medication usage, Demonstrated understanding of instructions, follow-up care, medications, Prescriptions given X 1. 01:17 Patient left the ED. bb Signatures: Annamarie Shaw, RN RN Raul Mckeon PA PA jr8 Allison Cortes Kristen RN RN kg
[2021-03-15] MEDS ORDERED: predniSONE 20 MG TAB ONE (01:31)
[2021-03-15 01:34] VITALS: BP 135/92; TEMP 96.1; O2SAT 97
== END 2021-03-15 01:17 | disposition home or self-care (01) ==
LOC: ER 23:03
DX: R21 Rash and other nonspecific skin eruption (principal); I10 Essential (primary) hypertension; F17.210 Nicotine dependence, cigarettes, uncomplicated; Z95.818 Presence of other cardiac implants and grafts
CPT/HCPCS: 96374; 96375; 99283; J1200; J2930; J7512

== ENCOUNTER 2021-03-17 17:16 | Emergency (ER) | payer SELFPAY ==
--- OUTSIDE RECORDS SUMMARY | 2021-03-17 17:19 | XMS REPORT | Continuity of Care Document ---
:1960 Author Organization [facility] t Address [address] [place] [address] Care Team Providers Name Role Phone UNKNOWN [...] Facility Department ID 2020-07-12 2020-07-12 Emergency Dirk CAJHONNY [id number] 09:57:00 11:25:00 Tj Triana [id number] [place] [id number] [place] [id number] 2017-03-05 2017-03-05 Outpatient E [facility] DONOVAN [id number] [address] 14:27:00 14:27:00 [facility] Results This patient has no known results.
--- NOTE | 2021-03-18 00:54 | ER ---
Nurse's Notes [facility] Name: Jose Dickson Age: 60 yrs Sex: Male : 1960 Arrival Date: 03/17/2021 Time: 17:20 Bed External Waiting Private MD: Diagnosis: Presentation: 03/17 17:38 Chief complaint: Patient states: Burning rash to neck that began 4 days ago. Pt reports ss he was seen in ER and given medications, but it is not working. Coronavirus screen: Client denies travel out of the [place] in the last 14 days. Ebola Screen: Patient denies exposure to infectious person. Patient denies travel to an Ebola-affected area in the 21 days before illness onset. Initial Sepsis Screen: Does the patient meet any 2 criteria? No. Patient's initial sepsis screen is negative. Does the patient have a suspected source of infection? No. Patient's initial sepsis screen is negative. Risk Assessment: Do you want to hurt yourself or someone else? Patient reports no desire to harm self or others. Onset of symptoms was March 13, 2021. 17:38 Method Of Arrival: Ambulatory ss 17:38 Acuity: CARLOS 4 ss Historical: - Allergies: 17:40 No Known Allergies; ss - PMHx: 17:40 Hypercholesterolemia; Hypertensive disorder; Myocardial infarction; ss - PSHx: 17:40 cardiac stents; Left forearm sx; ss - Immunization history:: Adult Immunizations up to date. - Social history:: Smoking status: Patient reports the use of cigarette tobacco products, smokes one-half pack cigarettes per day. Vital Signs: 17:38 BP 141 / 99; Pulse 78; Resp 16; Temp 98.4(TE); Pulse Ox 96% on R/A; Weight 99.79 kg; ss Height 6 ft. 0 in. (182.88 cm); Pain 10/10; 17:38 Body Mass Index 29.84 (99.79 kg, 182.88 cm) ss ED Course: 17:20 Patient arrived in ED. mr 17:39 Triage completed. ss 17:40 Arm band placed on right wrist. ss 21:29 Leonel Medellin PA is PHCP. cp 21:29 Giovanni Lawson MD is Attending Physician. cp Administered Medications: No medications were administered Outcome: 03/18 00:53 Patient left the ED. em Signatures: Loly Ortiz Edgar, RN RN em Michelle Diana RN RN ss Leonel Medellin, ROMAN OWENS cp
[2021-03-18 01:30] VITALS: BP 141/99; TEMP 98.4; O2SAT 96
== END 2021-03-18 00:53 | disposition left against medical advice (07) ==
LOC: ER 17:16
DX: Z53.21 Procedure and treatment not carried out due to patient leaving prior to being seen by health care provider (principal)
CPT/HCPCS: 99281

== ENCOUNTER 2021-07-12 01:08 | Emergency (ER) | payer SELFPAY ==
--- OUTSIDE RECORDS SUMMARY | 2021-07-12 01:12 | XMS REPORT | Continuity of Care Document ---
:1960 Author Organization [facility] t Address [address] [place] [address] Care Team Providers Name Role Phone UNKNOWN Primary Care Physician Unavailable Singer VICTOR Attending Clinician Carmen Tamez Attending Clinician CARMEN SPRAGUE Attending Clinician Unavailable Problems This patient has no known problems. Allergies, Adverse Reactions, Alerts Allergy Allergy Status Severity Reaction(s) Onset Inactive Treating Comm ents Source Name Type Date Date Clinician NO KNOWN Drug Active Univers ALLERGIE Class ity of S [facility] Social History Social Habit Start Date Stop Date Quantity Comments Source Sex Assigned [facility] Exposure to SARS-CoV-2 Not sure Un iversity of [place] (event) Medical [place] Smoking Status Start Date Stop Date Source Unknown [facility] Medications Ordered Filled Start Stop Current Ordering Indication Dosage Frequency Signature Comments Components Source Medication Medication Date Date Medication? Clinician (SIG) Name Name naproxen 2019-08 Yes [id number] 500mg Take 1 Univers (NAPROSYN) 09-12 [id number] tablet by it y of 500 mg 00:00: mouth 2 [place] tablet 00 (two) Medical times [place] daily with meals. SIMVASTATIN Yes Take by Un liz ORAL 03-03 mouth. ity of 11:48: [address] METOPROLOL Yes Take by Uni vers SUCCINATE - mouth. ity of ORAL 11:48: [address] LISINOPRIL Yes Take by Uni vers ORAL - mouth. ity of 11:48: [address] traMADOL 2016-0 Yes 50mg Take 1 Univers (ULTRAM) 50 7-31 tablet by ity of mg tablet 00:00: mouth [place] 00 every 6 Medical (six) Branch hours as needed for Pain (scale 7-10) or Pain unrelieved by non-narcot ic analgesics . Vital Signs Vital Name Observation Time Observation Value Comments Source Systolic blood 2020-07-12 15:54:00 138 mm[Hg] Univer sity of pressure [facility] Diastolic blood 2020-07-12 15:54:00 94 mm[Hg] Unive rsity of [facility] Heart rate 2020-07-12 15:54:00 80 /min Universi ty of [facility] Body temperature 2020-07-12 15:54:00 36.44 Silva [facility] Respiratory rate 2020-07-12 15:54:00 16 /min Univ [facility] Body height 2020-07-12 15:54:00 185.4 cm Universi ty of [facility] Body weight 2020-07-12 15:54:00 95.255 kg Universi ty of [facility] BMI 2020-07-12 15:54:00 27.71 kg/m2 Universi ty of [facility] Oxygen saturation in 2020-07-12 15:54:00 95 /min University of Arterial blood by [facility] Pulse oximetry Branch Systolic blood 2020-07-12 15:54:00 138 mm[Hg] Univer sity of [facility] Diastolic blood 2020-07-12 15:54:00 94 mm[Hg] Unive rsity of [facility] Heart rate 2020-07-12 15:54:00 80 /min Universi ty of [facility] Body temperature 2020-07-12 15:54:00 36.44 Silva [facility] Respiratory rate 2020-07-12 15:54:00 16 /min Univ [facility] Body height 2020-07-12 15:54:00 185.4 cm Universi ty of [facility] Body weight 2020-07-12 15:54:00 95.255 kg Universi ty of [facility] BMI 2020-07-12 15:54:00 27.71 kg/m2 Universi ty of [facility] Oxygen saturation in 2020-07-12 15:54:00 95 /min University of Arterial blood by [facility] Pulse oximetry Branch Procedures Procedure Date / Time Performed Performing Clinician [facility] e XR ANKLE 3+ VW LEFT 2020-07-12 16:44:08 Tj Sprague [facility] of [facility] NOTICE OF PRIVACY 2020-07-12 15:47:30 Doctor Unassigned, No [facility] PRACTICES Name Medical Branch Encounters Start End Encounter Admission Attending Care Care Encounter Source Date/Time Date/Time Type Type Clinicians Facility Department ID 2020-07-12 2020-07-12 Emergency Dirk Vasquez [facility] [id number] [facility] 09:57:00 11:25:00 Tj Sprague [id number] [facility] [id number] [facility] [id number] [facility] 084 Branch 2020-07-12 2020-07-12 Emergency Dirk Vasquez [facility] [id number] 09:57:00 11:25:00 Tj Sprague [id number] [place] [id number] [place] [id number] 2020-07-12 2020-07-12 Emergency X Tj SPRAGUE ERT [id number] Univers 09:57:00 09:57:00 [facility] 2017-03-05 2017-03-05 Outpatient E [facility] DONOVAN [id number] 14:27:00 14:27:00 [facility] Results Test Description Test Time Test Comments Results Result [facility] e Comments XR ANKLE 3+ VW HISTORY: ?Pain. Unive rsity of LEFT 9 Rolled ankle. [place] [facility] 16:47:45 FINDINGS: AP, Branch lateral, oblique views of left ankle showed no acute fractureor dislocation. Bony ossicle at the tip of tibial malleolus is likelyresidua of remote trauma. Mild soft tissue swelling, small ankle jointeffusion and mild degenerative changes in the tibiotalar joint noted. CONCLUSIONS: No acute fracture or dislocation in left ankle. [facility], Radiant Results Inft User - 07/12/2020 10:48 AM CSTHISTORY: Pain. Rolled ankle.FINDINGS: AP, lateral, oblique views of left ankle showed no acute fractureor dislocation. Bony ossicle at the tip of tibial malleolus is likelyresidua of remote trauma. Mild soft tissue swelling, small ankle jointeffusion and mild degenerative changes in the tibiotalar joint noted.CONCLUSIONS: No acute fracture or dislocation in left ankle.
--- NOTE | 2021-07-12 01:56 | EDPHYS ---
Physician Documentation [facility] Name: Jose Dickson Age: 60 yrs Sex: Male : 1960 Arrival Date: 07/12/2021 Time: 01:12 Bed 5 Private MD: ED Physician Orion Sommer HPI: 07/12 01:20 This 60 yrs old Male presents to ER via Unassigned with complaints of rn Shoulder Injury - RIGHT. 01:20 The patient or guardian complains of an injury, pain, that is acute. right shoulder. rn Onset: The symptoms/episode began/occurred just prior to arrival. Modifying factors: the symptoms are alleviated by remaining still, The symptoms are aggravated by lifting weight, movement, rotation of arm. Associated signs and symptoms: Pertinent negatives: abdominal pain, chest pain, neck pain, tingling. Severity of symptoms: At their worst the symptoms were mild, in the emergency department the symptoms are unchanged. The patient has not experienced similar symptoms in the past. The patient has not recently seen a physician. Patient reports at work, pipes were falling on him, he is not sure if injured right shoulder from direct blow from pipes or when he went down and struck his shoulder on something. Denies any weakness or numbness. Reports pain with rotation and lifting right arm. No head injury, no neck pain, no chest pain no trouble breathing, and no back pain. Reports pain isolated to right shoulder. Historical: - Allergies: 01:29 No Known Allergies; tw5 - PMHx: 01:29 Hypertensive disorder; Hypercholesterolemia; Myocardial infarction; tw5 - PSHx: 01:29 cardiac stents; Left forearm sx; tw5 - Immunization history:: Client reports receiving the 2nd dose of the Covid vaccine. - Social history:: Smoking status: Patient reports the use of cigarette tobacco products, smokes one pack cigarettes per day. - Family history:: not pertinent. - Hospitalizations: : No recent hospitalization is reported. ROS: 01:20 Constitutional: Negative for fever, chills, and weight loss, Eyes: Negative for injury, rn pain, redness, and discharge, Neck: Negative for injury, pain, and swelling, Cardiovascular: Negative for chest pain, palpitations, and edema, Respiratory: Negative for shortness of breath, cough, wheezing, and pleuritic chest pain, Abdomen/GI: Negative for abdominal pain, nausea, vomiting, diarrhea, and constipation, Back: Negative for injury and pain, MS/Extremity: Positive for pain and injury to right shoulder Skin: Negative for injury, rash, and discoloration, Neuro: Negative for headache, weakness, numbness, tingling, and seizure. Exam: 01:20 Constitutional: This is a well developed, well nourished patient who is awake, alert, rn and in no acute distress. Ambulatory to room without difficulty or assistance, both arms swinging normally with gait Head/Face: Normocephalic, atraumatic. Eyes: Periorbital areas with no swelling, redness, or edema. Neck: Trachea midline, no masses palpated. Supple, full range of motion without nuchal rigidity, or vertebral point tenderness. No Meningismus. Skin: Warm, dry with normal turgor. Normal color with no rashes, no lesions, and no evidence of cellulitis. MS/ Extremity: Pulses equal, no cyanosis. Neurovascular intact. Mild painful range of motion of shoulder with elevation of arm and external rotation. No bony tenderness. Clavicle without tenderness Neuro: Awake and alert, GCS 15, oriented to person, place, time, and situation. Motor strength 5/5 in all extremities. Sensory grossly intact. Cerebellar exam normal. Normal gait. Vital Signs: 01:24 BP 158 / 105; Pulse 79; Resp 14; Pulse Ox 97% on R/A; Weight 97.52 kg; Height 6 ft. 1 tw5 in. (185.42 cm); Pain 6/10; 01:24 Body Mass Index 28.37 (97.52 kg, 185.42 cm) tw5 MDM: 01:13 Patient medically screened. rn 01:53 Differential diagnosis: Anterior dislocation with fracture, Anterior dislocation rn without fracture, humeral head fracture, glenoid fracture, tendonitis, strain, sprain. Data reviewed: vital signs, nurses notes, radiologic studies, plain films, and as a result, I will discharge patient. Test interpretation: by ED physician or midlevel provider: plain radiologic studies, No acute fracture or dislocation noted on x-ray right shoulder. Counseling: I had a detailed discussion with the patient and/or guardian regarding: the historical points, exam findings, and any diagnostic results supporting the discharge/admit diagnosis, radiology results, the need for outpatient follow up, to return to the emergency department if symptoms worsen or persist or if there are any questions or concerns that arise at home. Special discussion: I discussed with the patient/guardian in detail that at this point there is no indication for admission to the hospital. It is understood, however, that if the symptoms persist or worsen the patient needs to return immediately for re-evaluation. 01:53 Special discussion: Further emergent ED testing is not indicated at this point in time. rn I discussed with the patient/guardian in detail the need to arrange with the PCP or specialist further outpatient testing, MRI. 07/12 01:19 Order name: XRAY Shoulder RIGHT 2 view rn Administered Medications: No medications were administered Disposition Summary: 07/12/21 01:56 Discharge Ordered Location: Home rn Problem: new rn Symptoms: have improved rn Condition: Stable rn Diagnosis - Other sprain of right shoulder joint rn - Strain of muscle(s) and tendon(s) of the rotator cuff of right shoulder rn Followup: rn - With: Private Physician - When: As needed - Reason: Recheck today's complaints, Re-evaluation by your physician Discharge Instructions: - Discharge Summary Sheet rn - Shoulder Pain rn - Shoulder Sprain rn Forms: - Medication Reconciliation Form rn - Thank You Letter rn - Work 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
--- NOTE | 2021-07-12 01:56 | ER ---
Nurse's Notes [facility] Name: Jose Dickson Age: 60 yrs Sex: Male : 1960 Arrival Date: 07/12/2021 Time: 01:12 Bed 5 Private MD: Diagnosis: Other sprain of right shoulder joint;Strain of muscle(s) and tendon(s) of the rotator cuff of right shoulder Presentation: 07/12 01:24 Chief complaint: Patient states: " I was working when a pipe fell on me. 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 Coronavirus screen: Vaccine status: Patient reports receiving the 2nd dose of the covid vaccine. Ebola Screen: Patient negative for fever greater than or equal to 101.5 degrees Fahrenheit, and additional compatible Ebola Virus Disease symptoms Patient denies exposure to infectious person. Patient denies travel to an Ebola-affected area in the 21 days before illness onset. Initial Sepsis Screen: Does the patient meet any 2 criteria? No. Patient's initial sepsis screen is negative. Does the patient have a suspected source of infection? No. Patient's initial sepsis screen is negative. Risk Assessment: Do you want to hurt yourself or someone else? Patient reports no desire to harm self or others. Onset of symptoms was July 12, 2021 at 00:24. 01:24 Method Of Arrival: Ambulatory tw5 01:24 Acuity: CARLOS 4 tw5 Triage Assessment: 01:29 General: Appears in no apparent distress. Behavior is calm, cooperative, anxious. Pain: tw5 Pain currently is 6 out of 10 on a pain scale. at worst was 8 out of 10 on a pain scale. Aggravated by increased activity. Musculoskeletal: Range of motion: intact in all extremities. 02:13 Injury Description: Bruise sustained to anterior aspect of right shoulder. tw5 Historical: - Allergies: 01: No Known Allergies; tw5 - PMHx: : Hypertensive disorder; Hypercholesterolemia; Myocardial infarction; tw5 - PSHx: :29 cardiac stents; Left forearm sx; tw5 - Immunization history:: Client reports receiving the 2nd dose of the Covid vaccine. - Social history:: Smoking status: Patient reports the use of cigarette tobacco products, smokes one pack cigarettes per day. - Family history:: not pertinent. - Hospitalizations: : No recent hospitalization is reported. Screenin:31 Abuse screen: Denies threats or abuse. Injuries were caused by another. Nutritional tw5 screening: No deficits noted. Tuberculosis screening: No symptoms or risk factors identified. Fall Risk No fall in past 12 months (0 pts). Secondary diagnosis (15 points) IV access (20 points). Ambulatory Aid-. Assessment: :31 General: SEE triage note. Neuro: Level of Consciousness is awake, alert, obeys tw5 commands, Oriented to person, place, time, situation. Vital Signs: 01:24 BP 158 / 105; Pulse 79; Resp 14; Pulse Ox 97% on R/A; Weight 97.52 kg; Height 6 ft. 1 tw5 in. (185.42 cm); Pain 6/10; :24 Body Mass Index 28.37 (97.52 kg, 185.42 cm) tw5 ED Course: 01:12 Patient arrived in ED. 01:12 Orion Sommer MD is Attending Physician. rn 01:16 Zaida Vazquez is Primary Nurse. tw 01:29 Triage completed. tw5 01:29 Arm band placed on. tw5 :31 Placed in gown. Bed in low position. Call light in reach. Pulse ox on. NIBP on. Door tw5 closed. Noise minimized. Visitors limited. Moved to private room. Warm blanket given. Verbal reassurance given. 01:31 Patient did not have IV access during this emergency room visit. tw5 01:46 XRAY Shoulder RIGHT 2 view In Process Unspecified. EDMS 02:12 No provider procedures requiring assistance completed. tw5 Administered Medications: No medications were administered Outcome: 01:56 Discharge ordered by . rn 02:12 Discharged to home ambulatory. tw5 02:12 Condition: good 02:12 Discharge instructions given to patient, Instructed on discharge instructions, follow up and referral plans. 02:13 Patient left the ED. tw5 Signatures: Dispatcher [employer] EDMS Orion Sommer MD MD rn Marsh, Wendy Zaida Vazquez tw5
[2021-07-12 02:26] VITALS: BP 158/105; O2SAT 97
--- NOTE | 2021-07-12 07:38 | RAD REPORT ---
EXAM DESCRIPTION: RAD - Shoulder Right 2 View - 07/12/2021 1:46 am CLINICAL HISTORY: PAIN COMPARISON: No comparisons FINDINGS: No acute fracture. No malalignment. Mild right AC joint degenerative changes. IMPRESSION: No acute osseous abnormality involving the .
== END 2021-07-12 02:13 | disposition home or self-care (01) ==
LOC: ER 01:08
DX: S43.491A Other sprain of right shoulder joint, initial encounter (principal); S46.011A Strain of muscle(s) and tendon(s) of the rotator cuff of right shoulder, initial encounter; I10 Essential (primary) hypertension; I25.2 Old myocardial infarction; F17.210 Nicotine dependence, cigarettes, uncomplicated; W22.8XXA Striking against or struck by other objects, initial encounter; Y92.89 Other specified places as the place of occurrence of the external cause; Y99.8 Other external cause status; Z95.818 Presence of other cardiac implants and grafts
CPT/HCPCS: 99283

== ENCOUNTER 2022-12-26 08:43 | Emergency (ER) | payer SELFPAY ==
--- OUTSIDE RECORDS SUMMARY | 2022-12-26 08:47 | XMS REPORT | Continuity of Care Document ---
:1960 Author Organization [facility] t Address [address] [facility] [place] [address] Care Team Providers Name Role Phone Unknown, Physician Primary Care Physician Unavailable ROMAN CHRISTIANSON Attending Clinician Unavailable Wander Mcleod Attending Clinician Unavailable Ankita Attending Clinician Unavailable Grey Pritchard MD Attending Clinician Lakshmi Hu MA Attending Clinician Unavailable Claudia PINTO, Celia Pwoell Attending Clinician Lonnie Mak MD Attending Clinician [phone] Philip Pulido MD Attending Clinician Dirk Vasquez DO Attending Clinician Tj Tamez Attending Clinician Tj SPRAGUE Attending Clinician Unavailable KNOW, DOES_NOT Admitting Clinician Unavailable Ankita Admitting Clinician Unavailable GREY PRITCHARD Admitting Clinician Unavailable Payers Payer Name Policy Type Policy Number Effective Date Expiration Date S ource GENERIC OTHER [id number] 2021 00:00:00 Problems Condition Condition Condition Status Onset Resolution Last Treating Co mments Source Name Details Category Date Date Treatment Clinician Date Tear of Tear of Disease Active Overview: Meth tito right right 4-[address] rotator rotator 00:00: g of this Hospi ta cuff cuff 00 note l might be different from the original. Added automatic ally from request for surgery [id number] Allergies, Adverse Reactions, Alerts Allergy Allergy Status Severity Reaction(s) Onset Inactive Treating Comm ents Source Name Type Date Date Clinician NO KNOWN Drug Active Univers ALLERGIE Class ity of [facility] Social History Social Habit Start Date Stop Date Quantity Comments Source History of tobacco Occasional Method ist use tobacco smoker Hospital Gender identity Religious Hospital Sexual orientation Method ist Hospital Exposure to Not sure University of SARS-CoV-2 (event) [facility] Alcohol intake 2021-12-28 2021-12-28 Current drinker [facility]o dist 00:00:00 00:00:00 of alcohol Hospital (finding) History of Social 2021-12-28 2021-12-[address] function 00:00:00 00:00:00 Hospital Cigarettes smoked 2021-11-12 2021-11-[address] current (pack per 00:00:00 00:00:00 Hospita l day) - Reported Tobacco use and 2021-11-12 2021-11-12 Smokeless tobacco Me thodist exposure 00:00:00 00:00:00 non-user Hospital Alcohol Comment 2021-11-12 2021-11-12 6 beers /month Metho dist 00:00:00 00:00:00 Hospital Sex Ass[birth year] At [birth year] Religious 00:00:00 00:00:00 Hospital Smoking Status Start Date Stop Date Source Occasional tobacco smoker 2021-11-12 00:00:00 [facility] Unknown if ever smoked [facility] Medications Ordered Filled Start Stop Current Ordering Indication Dosage Frequency Signature Comments Components Source Medication Medication Date Date Medication? Clinician (SIG) Name Name [place]DRO[place] 2021- [place] [address] 1{tbl} Q6H Take 1 Methodi -acetaminop 04-[address] hen ([place]) 00:00: 04:59 mouth [facility] 10-325 mg 00 :00 every 6 l per tablet (six) hours as needed for moderate pain for up to 10 days .acute pain. Max Daily Amount: 4 tablets traMADoL 2021- No 335[address] 50mg Q4H Take 1 Metho di (ULTRAM) 50 04-12 tablet (50 s t mg tablet 00:00: 04:59 mg total) Ho spita 00 :00 by mouth l every 4 (four) hours as needed for moderate pain for up to 10 days .acute pain. zolpidem 2021- No 5mg QD Take 1 Method i (AMBIEN) 5 04-10 tablet (5 st MG tablet 00:00: 04:59 mg total) Ho spita 00 :00 by mouth l nightly as needed for sleep for up to 31 days. cyclobenzap 2021- No 10mg Q.20280534 Take 1 Methodi rine 04-10 [id number] tablet (10 st (FLEXERIL) 00:00: 04:59 3D mg total) H ospita 10 mg 00 :00 by mouth 3 l tablet (three) times a day as needed for muscle spasms for up to 30 days. methylPREDN 2021- No follow Met hodi ISolone 04-[address] (Medrol, 00:00: 04:59 directions Ho spita Martin,) 4 mg 00 :00 l tablet methocarbam 2021- No 500mg Q.25D Take 1 M ethodi oL 02-[address] (ROBAXIN) 00:00: 04:59 (500 mg [facility] 500 MG 00 :00 total) by l tablet mouth 4 (four) times a day for 30 days. celecoxib 2021- No 200mg Q.5D Take 1 Meth tito (CeleBREX) 01-[address] 200 MG 00:00: 04:59 (200 mg Hospita capsule 00 :00 total) by l mouth 2 (two) times a day for 30 days. methocarbam 2021- No 750mg Q.25D Take 1 M ethodi oL 01-[address] (Robaxin-75 00:00: 04:59 (750 mg Ho spita 0) 750 MG 00 :00 total) by l tablet mouth 4 (four) times a day for 30 days. celecoxib 2021- No 200mg Q.5D Take 1 Meth tito (CeleBREX) 01-[address] 200 MG 00:00: 04:59 (200 mg Hospita capsule 00 :00 total) by l mouth 2 (two) times a day for 30 days. methocarbam No 750mg Q.25D Take 1 M ethodi oL 01-[address] (Robaxin-75 00:00: 04:59 (750 mg Ho spita 0) 750 MG 00 :00 total) by l tablet mouth 4 (four) times a day for 30 days. HYDROcodone 28 1{tbl} Q6H Take 1 Methodi -acetaminop 01-[address] hen ([place]) 00:00: 04:59 mouth [facility] 10-325 mg 00 :00 every 6 l per tablet (six) hours as needed for moderate pain for up to 10 days .acute pain. Max Daily Amount: 4 tablets traMADoL 2021- [place] [id number] 50mg Q4H Take 1 Metho di (ULTRAM) 50 01-02 tablet (50 s t mg tablet 00:00: 04:59 mg total) Ho spita 00 :00 by mouth l every 4 (four) hours as needed for moderate pain for up to 10 days .acute pain. atorvastati Yes 40mg QD Take 40 mg Methodi n (LIPITOR) 5-[address] 40 mg 14:27: daily. Hospita tablet 49 l losartan 0 Yes 25mg QD Take 25 mg Met hodi (COZAAR) 25 5-[address] MG tablet 14:27: daily. Hospit a 49 l aspirin 0 Yes 81mg QD Take 81 mg Meth tito (ECOTRIN) 5-[address] 81 MG 14:27: daily. Hospita enteric 49 l coated tablet omeprazole Yes 20mg QD Take 20 mg M ethodi (PriLOSEC) 5-[address] 20 MG 14:27: daily. Hospita capsule 49 l methocarbam Yes 750mg Q.91203260 Take 1 Methodi oL - [id number] tablet st (Robaxin-75 00:00: 3D (750 mg Hos rowan 0) 750 MG 00 total) by l tablet mouth 3 (three) times a day as needed for muscle spasms for up to 40 doses. ondansetron 2021- No 4mg Q8H Take 1 Met hodi (Zofran) 4 - 06-26 tablet (4 st MG tablet 00:00: 04:59 mg total) Ho spita 00 :00 by mouth l every 8 (eight) hours as needed for nausea or vomiting for up to 30 days. HYDROcodone 2021- No [id number] 1{tbl} Q6H Take 1 Methodi -acetaminop 12-27 06-[address] hen (NORCO) 00:00: 04:59 mouth [facility] 5-325 mg 00 :00 every 6 l per tablet (six) hours as needed for moderate pain for up to 40 doses .acute pain. Max Daily Amount: 4 tablets aspirin 81 Yes 81mg QD Chew 1 UT MG chewable 5-05 tablet (81 He alth tablet 00:00: mg total) 00 1 (one) time each day. losartan 2022- No [id number] 25mg QD Take 1 UT (Cozaar) 25 5-05 05-06 tablet (25 H ealth MG tablet 00:00: 04:59 mg total) 00 :00 by mouth 1 (one) time each day. atorvastati 2022- No [id number] 40mg QD Take 1 UT n (Lipitor) 5-05 05-06 tablet (40 H ealth 40 MG 00:00: 04:59 mg total) tablet 00 :00 by mouth 1 (one) time each day. naproxen 2019-08 Yes [id number] 500mg Take 1 Univers (NAPROSYN) 2- [id number] tablet by it y of 500 mg 00:00: mouth 2 [place] tablet 00 (two) Medical times Branch daily with meals. SIMVASTATIN Yes Take by Uni vers ORAL 7 mouth. ity of 11:48: [place] 12 Medical Branch METOPROLOL Yes Take by [facility] ers SUCCINATE 7-31 mouth. ity of ORAL 11:48: [address] LISINOPRIL Yes Take by [facility] ers ORAL 7-31 mouth. ity of 11:48: [address] traMADOL 2015- Yes 50mg Take 1 Univers (ULTRAM) 50 7- tablet by ity of mg tablet 00:00: mouth [place] [address] every 6 Medical (six) Branch hours as needed for Pain (scale 7-10) or Pain unrelieved by non-narcot ic analgesics . Immunizations Ordered Immunization Filled Immunization Date Status Commen ts [facility] BREWER[facility]aret 2021-06-12 Completed Methodis t MRNA VACCINATION 00:00:[address] [facility] DANIELLAMargaret 2020-11-15 Completed Methodis t MRNA VACCINATION 00:00:[address] [facility] DANIELLAMargaret 2020-10-20 Completed Methodis t MRNA VACCINATION 00:00:00 Hospital Vital Signs Vital Name Observation Time Observation Value Comments Source Systolic blood 2021-12-06 18:35:00 126 mm[Hg] [facility] Diastolic blood 2021-12-06 18:35:00 92 mm[Hg] [facility] Heart rate 2021-12-06 18:35:00 82 /[facility] Body height 2021-12-06 18:35:00 185.4 cm [facility] Body weight 2021-12-06 18:35:00 102.116 kg [facility] BMI 2021-12-06 18:35:00 29.70 kg/m2 [facility] Systolic blood 2020-07-12 15:54:00 138 mm[Hg] Univer [facility]ity of [facility] Diastolic blood 2020-07-12 15:54:00 94 mm[Hg] [facility] rsity [facility] Heart rate 2020-07-12 15:54:00 80 /min [facility] Body temperature 2020-07-12 15:54:00 36.44 Silva [facility] Respiratory rate 2020-07-12 15:54:00 16 /min [facility] Body height 2020-07-12 15:54:[address] [facility] Body weight 2020-07-12 15:54:00 95.[address] [facility] BMI 2020-07-12 15:54:00 27.71 kg/m2 Universi ty of [facility] Oxygen saturation in 2020-07-12 15:54:00 95 /min University of Arterial blood by [facility] Pulse oximetry Branch Systolic blood 2020-07-12 15:54:00 138 mm[Hg] Univer sity of pressure [facility] Diastolic blood 2020-07-12 15:54:00 94 mm[Hg] Unive rsity of pressure [facility] Heart rate 2020-07-12 15:54:00 80 /min Universi ty of [facility] Body temperature 2020-07-12 15:54:00 36.44 Silva Univ ersity [facility] Respiratory rate 2020-07-12 15:54:00 16 /min [facility] 2020-07-12 15:54:00 185.[address] [facility] Body weight 2020-07-12 15:54:00 [address] [facility] BMI 2020-07-12 15:54:00 27.71 kg/m2 Universi ty [facility] Oxygen saturation in 2020-07-12 15:54:00 95 /min University of Arterial blood by [facility] Pulse oximetry Branch Systolic blood 2021-12-27 18:32:00 131 mm[Hg] Method [facility] pressure Diastolic blood 2021-12-27 18:32:00 83 mm[Hg] [facility] pressure Heart rate 2021-12-27 18:32:00 87 /min [facility] Body temperature 2021-12-27 18:32:00 36.67 Silva [facility] Respiratory rate 2021-12-27 18:32:00 18 /min [facility] Oxygen saturation in 2021-12-27 18:32:00 93 /min [facility] Arterial blood by Pulse oximetry Body height 2021-12-27 14:14:00 185.4 cm [facility] Body weight 2021-12-27 14:14:00 98.748 kg [facility] BMI 2021-12-27 14:14:00 28.72 kg/m2 [facility] Procedures Procedure Date / Time Performing Clinician Source Performed RADEX SPI CRV MINIMUM 4 2022-11-27 00:00:00 Alvina anderson Orthopedic VIEWS Sports Medicine MRI CERVICAL SPINE W/O 2022-11-27 00:00:00 Allyson jauregui Orthopedic CONTRAST Sports Medicine HC NERVE BLOCK, 2021-12-27 14:55:55 Lonnie Mak [facility] INTERSCALENE W IMG MICHELLE Galvez [place] AN ELECTIVE 2021-12-27 14:49:00 Philip Pulido ospital ENDOTRACHEAL AIRWAY ARTHROSCOPY, SHOULDER 2021-12-27 14:42:00 Grey Pritchard [facility] ECG 12-LEAD 2021-12-06 18:33:00 Roman Christianson [facility] XR ANKLE 3+ VW LEFT 2020-07-12 16:44:[address] [facility] NOTICE OF PRIVACY 2020-07-12 15:47:30 Doctor Unassigned, No [facility] PRACTICES Name [facility] Plan of Care Planned Activity Planned Date Details Comments Source Future Scheduled 2022-11-08 Pneumococcal Vaccine: [facility] Test 19:05:14 Pediatrics (0 to 5 Years) and At-Risk Patients (6 to 64 Years) (1 - PCV) [code = Pneumococcal Vaccine: Pediatrics (0 to 5 Years) and At-Risk Patients (6 to 64 Years) (1 - PCV)] Future Scheduled 2022-11-08 Hepatitis C screening [facility] Test 19:05:14 (procedure) [code = 623000221] Future Scheduled 2022-11-08 COLONOSCOPY SCREENING [facility] Test 19:05:14 [code = COLONOSCOPY SCREENING] Future Scheduled 2022-11-08 SHINGLES VACCINES (1 Met [facility] Test 19:05:14 of 2) [code = SHINGLES VACCINES (1 of 2)] Future Scheduled 2022-11-08 COVID-19 VACCINE (4 - [facility] Test 19:05:14 Booster for Moderna series) [code = COVID-19 VACCINE (4 - Booster for Moderna series)] Future Scheduled 2022-11-08 INFLUENZA VACCINE Method [facility] Test 19:05:14 [code = INFLUENZA VACCINE] Encounters Start End Encounter Admission Attending Care Care Encounter Source Date/Time Date/Time Type Type Clinicians Facility Department ID 2022-06-11 Outpatient [facility] [id number] [place] 10:11:58 [id number] [facility] 2021-12-10 Outpatient [facility] [id number] [place] 13:04:09 [id number] [facility] 2021-12-06 Outpatient SHAQ, [facility] [id number] [place] 13:21:47 ROMAN [id number] [facility] 2021-12-05 Outpatient SHAQ, [facility] [id number] [place] 11:31:44 ROMAN [id number] [facility] 2021-11-14 Outpatient [facility] ER [id number] [place] 08:31:41 [id number] [facility] 2022-12-18 2022-12-09 Inpatient [place], [facility] [id number] [facility] 07:30:00 08:00:00 Wander Fisher [facility]ope [facility] Hospita l 2022-11-27 2022-11-27 Outpatient FOG_Lyu_Kev AOSM AOSM [id number] Che 00:00:00 00:00:00 Maira [id number] Orthop e dic Sports Medicin e 2022-11-27 2022-11-27 Wander Anna AOSM [place] - Ortho [id number] Che 00:00:00 00:00:00 Sandy Mcleod MD: [id number] FOG_Ofc dic [facility], [place] [phone] , Ph. [phone] 2022-11-13 2022-11-13 Outpatient FOG_Lyu_Kev AOSM AOSM [id number] Che 00:00:00 00:00:00 Maira [id number] Orthop e dic Sports Medicin e 2022-10-30 2022-10-30 Outpatient FOG_Lyu_Kev AOSM AOSM [id number] Che 00:00:00 00:00:00 Maira [id number] Orthop e dic Sports Medicin e 2022-04-12 2022-04-12 Jimbo Pritchard, 1.2.840.1 [id number] 1873 Methodi 00:00:00 00:00:00 Only [place] 28025.1.1 219 3.430.2.7 Hospit a .3.791220 l .8 2022-04-10 2022-04-10 Telephone [place], 1.2.840.1 [id number] 2100 [id number] Methodi 00:00:00 00:00:00 [place] [address] 3.430.2.7 Hospit a .3.309906 l .8 2022-04-10 2022-04-10 Orders Fritz, 1.2.840.1 [id number] Methodi 00:00:00 00:00:00 Only Lakshmi 82662.1.[address] 3.430.2.7 Hospit a .3.895132 l .8 2022-02-22 2022-02-22 Jimbo Hu, 1.2.840.1 [id number] 3327 Methodi 00:00:00 00:00:00 Only Lakshmi 66929.1.[address] 3.430.2.7 Hospit a .3.315942 l .8 2022-01-22 2022-01-22 Orders Fritz, 1.2.840.1 [id number] 6191 Methodi 00:00:00 00:00:00 Only Lakshmi 45337.1.[address] 3.430.2.7 Hospit a .3.771030 l .8 2022-01-22 2022-01-22 Telephone [place], 1.2.840.1 [id number] 2100 [id number] Methodi 00:00:00 00:00:00 [place] [address] 3.430.2.7 Hospit a .3.475320 l .8 2022-01-02 2022-01-02 Orders [place], 1.2.840.1 [id number] 4009 Methodi 00:00:00 00:00:00 Only [place] [address]10.1.[address] 3.430.2.7 Hospit a .3.769883 l .8 2022-01-02 2022-01-02 Telephone [place], 1.2.840.1 [id number] 2100 [id number] Methodi 00:00:00 00:00:00 [place] [address] 3.430.2.7 Hospit a .3.621108 l .8 2021-12-28 2021-12-28 Telephone Claudia, 1.2.840.1 [id number] 2100 [id number] Methodi 00:00:00 00:00:[address] Sherry 3.430.2.7 Hospit a .3.373056 l .8 2021-12-27 2021-12-27 Hospital [place], 1.2.840.1 [id number] [id number] Methodi 07:06:00 14:15:00 Encounter [place] 69672.1.1 364 s t 3.430.2.7 Hospit a .3.160568 l .8 2021-12-27 2021-12-27 Surgery [place], 1.2.840.1 [id number] Methodi 11:15:00 13:25:00 [place] [address] 3.430.2.7 Hospit a .3.237865 l .8 2021-12-27 2021-12-27 Anesthesia Niharikaian, Lonnie Arellano o 1.2.840.1 [id number] Methodi 09:43:00 12:24:00 Event Philip Pulido 29929.1.[address] 3.430.2.7 Hospit a .3.747531 l .8 2021-12-27 2021-12-27 Travel 1.2.840.1 1.2.093.189 9407 [id number] Methodi 00:00:00 00:00:[address] 3.430.2.7 0.2.7.3.698 Ho spita .3.168594 084.8 l .8 2021-12-27 2021-12-27 Outpatient [facility] 229 [id number] [place] 00:00:00 00:00:00 GREY Boudreaux [facility] 2021-12-20 2021-12-20 Outpatient [facility] [id number] [place] 00:00:00 00:00:00 GREY [address] 2021-12-06 2021-12-06 Office ANA LAURA Christianson [facility] 1.2.840.114 [id number] [place] 14:30:00 14:30:00 Visit Roman [facility] 350.1.13.58 H ealth ELKINZA 2 9.2.7.2.686 [id number] 1 2021-11-13 2021-11-13 Outpatient MACHO, [facility] [id number] [place] 00:00:00 00:00:00 GREY [address] 2020-07-12 2020-07-12 Emergency VasquezDirk [facility] 1.2.840. 114 [id number] 09:57:00 11:25:00 Tj Sprague 350.1.13.10 [place] 4.2.7.2.686 [place] [id number] [facility] 2020-07-12 2020-07-12 Emergency VasquezDirk [facility] 1.2.840. 114 [id number] [facility] 09:57:00 11:25:00 Tj Sprague 350.1.13.10 ity [facility] 4.2.7.2.686 [facility] [id number] [address] 2020-07-12 2020-07-12 Emergency X Tj SPRAGUE ERT [id number] Univers 09:57:00 09:57:[address] [facility] 2017-03-05 2017-03-05 Outpatient E [facility] DONOVAN [id number] 14:27:00 14:27:00 [facility] Results Test Description Test Time Test Comments Results Result [facility] e Comments XR ANKLE 3+ VW HISTORY: [...] acute fracture or dislocation in left ankle. [facility], Radiant Results Inft - 07/12/2020 10:48 AM CSTHISTORY: Pain. Rolled [...]
[2022-12-26] MEDS ORDERED: COLCHICINE 0.6 MG TAB ONE (09:10)
[2022-12-26] MEDS ORDERED: METOPROLOL TAR 50 MG TAB ONE (09:10)
--- NOTE | 2022-12-26 10:01 | RAD REPORT ---
EXAM DESCRIPTION: US - Extremity Venous Uni Ltd - 12/26/2022 9:29 am CLINICAL HISTORY: Pain, swelling COMPARISON: None. TECHNIQUE: Real-time sonographic evaluation of the right lower extremity deep venous system was perf ormed. FINDINGS: Normal compressibility, flow augmentation, phasic flow and spontaneous flow is identified in the right lower extremity deep venous system. No intraluminal filling defects seen. Lenticular fluid collection along the lateral aspect of the knee measuring 4 millimeter in thickness. IMPRESSION: No evidence of DVT in the right lower extremity. Lenticular fluid collection along the lateral aspect of the right knee, could represent extension of joint effusion, or a nonspecific seroma.
--- NOTE | 2022-12-26 10:07 | RAD REPORT ---
EXAM DESCRIPTION: RAD - Knee Right 3 View - 12/26/2022 9:46 am CLINICAL HISTORY: PAIN COMPARISON: No comparisons TECHNIQUE: Right knee, 3 views. FINDINGS: No fracture, dislocation or periosteal reaction.Suspected small suprapatellar effusion. Mi ld degenerative marginal spurring along the weight-bearing compartments. No joint space narrowing. No soft tissue abnormality. Vascular calcifications. IMPRESSION: Suspected small joint effusion. No acute osseous abnormality. Mild degenerative changes.
--- NOTE | 2022-12-26 10:17 | ER ---
Nurse's Notes [facility] Name: Jose Dickson Age: 62 yrs Sex: Male : 1960 Arrival Date: 12/26/2022 Time: 08:43 Bed 20 Private MD: Diagnosis: Gout, unspecified Presentation: 12/26 08:51 Chief complaint: Patient states: right knee pain x 1 month ago, worse today. aa5 Coronavirus screen: At this time, the client does not indicate any symptoms associated with coronavirus-19. Ebola Screen: Patient denies travel to an Ebola-affected area in the 21 days before illness onset. Initial Sepsis Screen: Does the patient meet any 2 criteria? No. Patient's initial sepsis screen is negative. Does the patient have a suspected source of infection? No. Patient's initial sepsis screen is negative. Risk Assessment: Do you want to hurt yourself or someone else? Patient reports no desire to harm self or others. Onset of symptoms was 2022. 08:51 Method Of Arrival: Wheelchair aa5 08:51 Acuity: CARLOS 3 aa5 Historical: - Allergies: 08:52 No Known Allergies; aa5 - PMHx: 08:52 Hypercholesterolemia; Hypertensive disorder; Myocardial infarction; aa5 - PSHx: 08:52 cardiac stents; Left forearm sx; aa5 - Immunization history:: Adult Immunizations unknown. - Social history:: Smoking status: Patient reports the use of cigarette tobacco products. Screenin:20 [facility] ED Fall Risk Assessment (Adult) History of falling in the last 3 months, kc6 including since admission No falls in past 3 months (0 pts) Confusion or Disorientation No (0 pts) Intoxicated or Sedated No (0 pts) Impaired Gait Yes (1 pt) Mobility Assist Device Used No (0 pt) Altered Elimination No (0 pt) Score/Fall Risk Level 0 - 2 = Low Risk Oriented to surroundings, Maintained a safe environment, Educated pt \T\ family on fall prevention, incl call for assistance when getting out of bed, Assessed \T\ reinforced patient's understanding of fall precautions, Hourly rounding (assess needs \T\ fall precautionary measures) done. Abuse screen: Denies threats or abuse. Denies injuries from another. Nutritional screening: No deficits noted. Tuberculosis screening: No symptoms or risk factors identified. Assessment: 09:18 General: Appears in no apparent distress. uncomfortable, Behavior is calm, cooperative, kc6 appropriate for age. Pain: Complains of pain in right knee Pain currently is 10 out of 10 on a pain scale. Neuro: Burton Agitation-Sedation Scale (RASS): 0 - Alert and Calm Level of Consciousness is awake, alert, obeys commands, Oriented to person, place, time, situation, Appropriate for age. Cardiovascular: Capillary refill < 3 seconds. Respiratory: Airway is patent Trachea midline Respiratory effort is even, unlabored, Respiratory pattern is regular, symmetrical. GI: No signs and/or symptoms were reported involving the gastrointestinal system. : No signs and/or symptoms were reported regarding the genitourinary system. EENT: No signs and/or symptoms were reported regarding the EENT system. Derm: No signs and/or symptoms reported regarding the dermatologic system. Skin is intact, Skin is pink, warm \T\ dry. Musculoskeletal: No signs and/or symptoms reported regarding the musculoskeletal system. Circulation, motion, and sensation intact. Capillary refill < 3 seconds, Range of motion: limited in right knee. 10:00 Reassessment: Patient appears in no apparent distress at this time. No changes from kc6 previously documented assessment. Patient and/or family updated on plan of care and expected duration. Pain level reassessed. Patient is alert, oriented x 3, equal unlabored respirations, skin warm/dry/pink. Vital Signs: 08:51 BP 179 / 117; Pulse 83; Resp 22 S; Temp 98(TE); Pulse Ox 99% on R/A; Weight 102.06 kg aa5 (R); Height 6 ft. 1 in. (R); 10:01 BP 160 / 101; Pulse 58; Resp 17 S; Pulse Ox 98% on R/A; kc6 10:10 BP 136 / 92; Pulse 56; Resp 19 S; Pulse Ox 99% on R/A; kc6 08:51 Body Mass Index 29.69 (102.06 kg, 185.42 cm) aa5 ED Course: 08:45 Patient arrived in ED. mr 08:47 Sharla Olmos FNP-C [facility]. snw 08:47 Taran Garcia DO is Attending Physician. snw 08:47 Priscila Vanegas, KRISTEN is Primary Nurse. kc6 08:51 Triage completed. aa5 08:51 Arm band placed on. aa5 09:20 Patient has correct armband on for positive identification. Bed in low position. Call kc6 light in reach. Side rails up X 1. 09:28 US Extremity Venous Unilateral Ltd In Process Unspecified. EDMS 09:48 Knee Right 3 View XRAY In Process Unspecified. EDMS 10:34 No provider procedures requiring assistance completed. Patient did not have IV access kc6 during this emergency room visit. Administered Medications: 09:09 Drug: Colcrys PO 1.2 mg Route: PO; kc6 10:11 Follow up: Response: No adverse reaction kc6 09:09 Drug: Metoprolol PO 50 mg Route: PO; kc6 10:11 Follow up: Response: No adverse reaction; Blood pressure is lowered kc6 Medication: 10:34 VIS not applicable for this client. kc6 Outcome: 10:16 Discharge ordered by . snw 10:34 Discharged to home ambulatory. kc6 10:34 Condition: stable 10:34 Discharge instructions given to patient, Instructed on discharge instructions, follow up and referral plans. medication usage, Demonstrated understanding of instructions, follow-up care, medications, Prescriptions given X 2. 10:34 Patient left the ED. kc6 Signatures: Dispatcher [employer] EDMS Sharla Olmos, W[place]C PAINT STOCK CLERK-Riccardo Loly Ortiz, Terrie, RN RN aa5 Priscila Vanegas RN RN kc6 Corrections: (The following items were deleted from the chart) 08:54 08:51 Acuity: CARLOS 4 aa5 aa5 08:54 08:51 Pulse 83bpm; Resp 22bpm; Spontaneous; Pulse Ox 99% RA; Temp 98F Temporal; 102.06 aa5 kg Reported; Height 6 ft. 1 in. Reported; BMI: 29.6; aa5
--- NOTE | 2022-12-26 10:17 | EDPHYS ---
Physician Documentation [facility] Name: Jose Dickson Age: 62 yrs Sex: Male : 1960 Arrival Date: 12/26/2022 Time: 08:43 Bed 20 Private MD: ED Physician Taran Garcia HPI: 12/26 09:54 This 62 yrs old Male presents to ER via Wheelchair with complaints of Knee Pain. snw 09:54 The patient presents with pain, that is acute. Context: The problem was sustained at [facility] home, resulted from an unknown cause. Onset: The symptoms/episode began/occurred suddenly, this morning, yesterday, and became worse. Associated signs and symptoms: Pertinent positives: spasms. The patient has not experienced similar symptoms in the past. Historical: - Allergies: 08:52 No Known Allergies; aa5 - PMHx: 08:52 Hypercholesterolemia; Hypertensive disorder; Myocardial infarction; aa5 - PSHx: 08:52 cardiac stents; Left forearm sx; aa5 - Immunization history:: Adult Immunizations unknown. - Social history:: Smoking status: Patient reports the use of cigarette tobacco products. ROS: 09:54 Constitutional: Negative for fever, chills, and weight loss, Eyes: Negative for injury, snw pain, redness, and discharge, ENT: Negative for injury, pain, and discharge, Neck: Negative for injury, pain, and swelling, Cardiovascular: Negative for chest pain, palpitations, and edema, Respiratory: Negative for shortness of breath, cough, wheezing, and pleuritic chest pain, Abdomen/GI: Negative for abdominal pain, nausea, vomiting, diarrhea, and constipation, Back: Negative for injury and pain, : Negative for injury, bleeding, discharge, and swelling, Skin: Negative for injury, rash, and discoloration, Neuro: Negative for headache, weakness, numbness, tingling, and seizure, Psych: Negative for depression, anxiety, suicide ideation, homicidal ideation, and hallucinations. 09:54 MS/extremity: Positive for injury or acute deformity, decreased range of motion, pain, of the right knee. Exam: 09:52 Constitutional: This is a well developed, well nourished patient who is awake, alert, snw and in no acute distress. Head/Face: Normocephalic, atraumatic. Eyes: Pupils equal round and reactive to light, extra-ocular motions intact. Lids and lashes normal. Conjunctiva and sclera are non-icteric and not injected. Cornea within normal limits. Periorbital areas with no swelling, redness, or edema. ENT: Nares patent. No nasal discharge, no septal abnormalities noted. Tympanic membranes are normal and external auditory canals are clear. Oropharynx with no redness, swelling, or masses, exudates, or evidence of obstruction, uvula midline. Mucous membranes moist. Neck: Trachea midline, no thyromegaly or masses palpated, and no cervical lymphadenopathy. Supple, full range of motion without nuchal rigidity, or vertebral point tenderness. No Meningismus. Chest/axilla: Normal chest wall appearance and motion. Nontender with no deformity. No lesions are appreciated. Cardiovascular: Regular rate and rhythm with a normal S1 and S2. No gallops, murmurs, or rubs. Normal PMI, no JVD. No pulse deficits. Respiratory: Lungs have equal breath sounds bilaterally, clear to auscultation and percussion. No rales, rhonchi or wheezes noted. No increased work of breathing, no retractions or nasal flaring. Abdomen/GI: Soft, non-tender, with normal bowel sounds. No distension or tympany. No guarding or rebound. No evidence of tenderness throughout. Back: No spinal tenderness. No costovertebral tenderness. Full range of motion. Skin: Warm, dry with normal turgor. Normal color with no rashes, no lesions, and no evidence of cellulitis. Neuro: Awake and alert, GCS 15, oriented to person, place, time, and situation. Cranial nerves II-XII grossly intact. Motor strength 5/5 in all extremities. Sensory grossly intact. Cerebellar exam normal. Normal gait. Psych: Awake, alert, with orientation to person, place and time. Behavior, mood, and affect are within normal limits. 09:52 Musculoskeletal/extremity: Extremities: grossly normal except: tenderness, spasm, ROM: limited active range of motion due to pain, limited passive range of motion due to pain, Circulation is intact in all extremities. Sensation intact. Joints: the right knee displays pain at rest, painful range of motion, swelling, tenderness. Vital Signs: 08:51 BP 179 / 117; Pulse 83; Resp 22 S; Temp 98(TE); Pulse Ox 99% on R/A; Weight 102.06 kg aa5 (R); Height 6 ft. 1 in. (R); 10:01 BP 160 / 101; Pulse 58; Resp 17 S; Pulse Ox 98% on R/A; kc6 10:10 BP 136 / 92; Pulse 56; Resp 19 S; Pulse Ox 99% on R/A; kc6 08:51 Body Mass Index 29.69 (102.06 kg, 185.42 cm) aa5 MDM: 08:47 Patient medically screened. snw 10:28 Differential diagnosis: contusion. Data reviewed: vital signs, nurses notes. snw Counseling: I had a detailed discussion with the patient and/or guardian regarding: the historical points, exam findings, and any diagnostic results supporting the discharge/admit diagnosis, radiology results, the need for outpatient follow up, for definitive care, to return to the emergency department if symptoms worsen or persist or if there are any questions or concerns that arise at home. Special discussion: Based on the history and exam findings, there is no indication for further emergent testing or inpatient evaluation. I discussed with the patient/guardian the need to see the primary care provider for further evaluation of the symptoms. 12/26 08:55 Order name: US Extremity Venous Unilateral Ltd; Complete Time: 10:03 snw 12/26 08:55 Order name: Knee Right 3 View XRAY; Complete Time: 10:08 snw 12/26 10:29 Order name: Mio wrap-joint; Complete Time: 10:34 snw Administered Medications: 09:09 Drug: Colcrys PO 1.2 mg Route: PO; kc6 10:11 Follow up: Response: No adverse reaction kc6 09:09 Drug: Metoprolol PO 50 mg Route: PO; kc6 10:11 Follow up: Response: No adverse reaction; Blood pressure is lowered kc6 Disposition: 10:13 I was immediately available on-site in the Emergency Department for consultation in the ms3 care of the patient. Disposition Summary: 12/26/22 10:16 Discharge Ordered Location: Home snw Condition: Stable snw Diagnosis - Gout, unspecified snw Followup: snw - With: Private Physician - When: 2 - 3 days - Reason: Recheck today's complaints, Continuance of care, Re-evaluation by your physician Followup: snw - With: Emergency Department - When: As needed - Reason: Worsening of condition Discharge Instructions: - Discharge Summary Sheet snw - Gout snw - Low-Purine Eating Plan snw Forms: - Medication Reconciliation Form snw - Thank You Letter snw - Antibiotic Education snw - Prescription Opioid Use snw Prescriptions: - Mobic 7.5 mg Oral Tablet - take 1 tablet by ORAL route once daily take with food; 20 tablet; Refills: 0, snw Product Selection Permitted - Tramadol 50 mg Oral Tablet - take 1 tablet by ORAL route every 8 hours as needed; 12 tablet; Refills: 0, snw Product Selection Permitted Signatures: Dispatcher [employer] EDMS Sharla Olmos, CANVASSING MANAGER-C CANVASSING MANAGER-Csnw Terrie Kirby, RN RN aa5 Taran Garcia DO DO ms3 Priscila Vanegas RN RN kc6
[2022-12-26 10:39] VITALS: TEMP 98
[2022-12-26 10:41] VITALS: BP 136/92; O2SAT 99
== END 2022-12-26 10:34 | disposition home or self-care (01) ==
LOC: ER 08:43
DX: M10.9 Gout, unspecified (principal); I10 Essential (primary) hypertension; Z95.818 Presence of other cardiac implants and grafts; Z72.0 Tobacco use
CPT/HCPCS: 93971; 99284

== ENCOUNTER 2025-03-16 12:59 | Inpatient (IN) | payer OTHER, SELFPAY ==
[2025-03-16] MEDS ORDERED: LORazepam 2 MG/ML VIAL ONE ×2 (13:16→14:43)
[2025-03-16] MEDS ORDERED: ASPIRIN 81 MG CHEWABLE TABLET ONE (13:17)
[2025-03-16 13:25] LABS: Absolute Lymphocytes (CBC) 3.0 K/uL (0.7-4.9); Hematocrit 51.7 % (39.6-49.0); Hemoglobin 18.2 g/dL (13.6-17.9); MCH 30.5 pg (27.0-35.0); MCHC 35.1 g/dL (32.0-36.0); MCV 86.8 fL (80-100); MPV 8.3 fL (7.6-11.3); Nucleated RBC Absolute Count 0.0 (0-0); Nucleated Red Blood Cells % 0.5 % (0-0); RBC Red Blood Cell Count 5.96 M/uL (4.33-5.43); White Blood Count 8.80 thou/uL (4.3-10.9)
[2025-03-16 13:31] LABS: PT Prothrombin Time 12.5 SECONDS (10-13.0); Protime INR 1.11
[2025-03-16 13:45] LABS: ALT/SGPT 54.0 U/L (16-61); AST/SGOT 22.0 U/L (15-37); Albumin 4.5 g/dL (3.4-5.0); Albumin/Globulin Ratio 1.0 (1.1-1.8); Alkaline Phosphatase 75.0 U/L (45-117); Anion Gap 11.1 mEq/L (5.0-15.0); BUN Blood Urea Nitrogen 18.0 mg/dL (7-18); Bilirubin Indirect, Calculated 0.9 mg/dL (0.2-0.8); Globulin 4.5 g/dL (2.3-3.5); Glucose Level 117.0 mg/dL (74-106); Magnesium 2.3 mg/dL (1.6-2.4); NT PRO-BNP 76.0 pg/mL (<125); Potassium 4.1 mEq/L (3.5-5.1); Troponin High Sensitivity 34.8 pg/mL (<58.9)
[2025-03-16] MEDS ORDERED: HYDRALAZINE HCL 20 MG/ML VIAL ONE (14:00)
[2025-03-16] MEDS ORDERED: MORPHINE 4 MG/ML SYR ONE (14:28)
--- NOTE | 2025-03-16 14:38 | RAD REPORT ---
EXAM: Chest Single View HISTORY: 64 years Male CHEST PAIN COMPARISON: 06/12/2019 FINDINGS: LUNGS/PLEURA: The lungs are clear. No pleural effusions or pneumothorax. No pulmonary edema. CARDIAC/MEDIASTINUM: The cardiac silhouette is within normal limits. UPPER ABDOMEN: No significant abnormality. BONES: No acute abnormality. LINES/TUBES/OTHER: N/A IMPRESSION: No evidence of acute cardiopulmonary disease.
[2025-03-16] MEDS ORDERED: NITROGLYCERIN 0.4 MG/TAB SL ONE (14:43)
--- NOTE | 2025-03-16 15:26 | RAD REPORT ---
EXAMINATION: Head Brain Wo Cont CLINICAL INDICATION: Male, 64 years old.hallucinations, HTN TECHNIQUE: Axial CT images from the skull base to the vertex without intravenous contrast. Coronal an d sagittal reformatted images were created from the data set. One or more of the following dose reduction techniques were used: Automated exposure control, adjustment of the mA and/or kV according to patient size, and/or iterative reconstruction. Unless otherwise specified, incidental findings do not require dedicated imaging follow-up. [id number]. COMPARISON: No prior exams FINDINGS: INTRACRANIAL: No acute intracranial hemorrhage. No acute large vascular territory infarct. No hydroce phalus. No mass effect or midline shift. Moderate chronic small vessel ischemic changes.Remote right frontal lobe cortical infarct. VASCULATURE: No visualized abnormalities in the arteries or dural venous sinuses. SCALP/SKULL: No calvarial fracture identified. No acute soft tissue abnormality. SINUSES: The visualized paranasal sinuses are mostly clear. No significant mastoid fluid. IMPRESSION: No acute intracranial abnormality. Small remote right frontal lobe cortical infarct. Moderate chronic small vessel ischemic changes.
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
--- NOTE | 2025-03-16 16:20 | EDPHYS ---
Physician Documentation [facility] Name: Jose Dickson Age: 64 yrs Sex: Male : 1960 Arrival Date: 03/16/2025 Time: 12:59 Bed [id number] Private MD: ED Physician Taran Garcia HPI: 03/16 13:59 This 64 yrs old Male presents to ER via Wheelchair with complaints of Chest Pain, ms3 Numbness Of Arm. 13:59 64-year-old male with past medical history of hypercholesterolemia, hypertension, ms3 myocardial infarction presents to the emergency department for chest pain that began 45 minutes prior to arrival while he was sitting around drinking coffee. Patient states pain is 10/10 located substernal without radiation. Patient denies nausea, vomiting, shortness of breath, back pain.. Historical: - Allergies: 13:29 No Known Allergies; ph - PMHx: 13:19 Hypercholesterolemia; Hypertensive disorder; Myocardial infarction; iw - PSHx: 13:19 cardiac stents; Left forearm sx; iw - Immunization history:: Adult Immunizations unknown. - Infectious Disease History:: Denies. - Social history:: Smoking status: unknown Patient/guardian denies using street drugs. ROS: 13:59 Constitutional: Negative for fever, and chills. ms3 13:59 Respiratory: Negative for shortness of breath, cough, wheezing, and pleuritic chest pain, Abdomen/GI: Negative for abdominal pain, nausea, vomiting, diarrhea, and constipation, MS/Extremity: Negative for injury and deformity, Skin: Negative for injury, rash, and discoloration, 13:59 Cardiovascular: Positive for chest pain, Exam: 13:59 Constitutional: This is a well developed, well nourished patient who is awake, alert, ms3 and in no acute distress. Cardiovascular: Regular rate and rhythm with a normal S1 and S2. No gallops, murmurs, or rubs. Normal PMI, no JVD. No pulse deficits. Respiratory: Lungs have equal breath sounds bilaterally, clear to auscultation and percussion. No rales, rhonchi or wheezes noted. No increased work of breathing, no retractions or nasal flaring. Abdomen/GI: Soft, non-tender, with normal bowel sounds. No distension or tympany. No guarding or rebound. No evidence of tenderness throughout. Skin: Warm, dry with normal turgor. Normal color with no rashes, no lesions, and no evidence of cellulitis. MS/ Extremity: Pulses equal, no cyanosis. Neurovascular intact. Full, normal range of motion. 13:59 ECG was reviewed by the Attending Physician. Vital Signs: 13:18 BP 180 / 114; Pulse 81; Resp 22; Pulse Ox 96% on R/A; Pain 10/10; ph 15:09 BP 121 / 86; Pulse 82; Resp 16; Pulse Ox 98% on R/A; ph 16:09 BP 143 / 103; Pulse 77; Resp 18; Pulse Ox 98% on R/A; ph 16:28 Weight 94 kg; hb 17:00 BP 140 / 86; Pulse 72; Resp 18; Temp 97.5; Pulse Ox 99% on R/A; ph 17:52 BP 144 / 96; Pulse 72; Resp 18; Pulse Ox 97% on R/A; ph 19:00 BP 136 / 91; Pulse 88; Resp 19; Pulse Ox 97% ; jj7 20:00 BP 153 / 99; Pulse 86; Resp 20; Temp 97.9; Pulse Ox 96% ; jj7 13:18 Pain Scale: Adult ph MDM: 13:05 Medical Screening Exam initiated ms3 16:15 Differential diagnosis: abnormal EKG, acute myocardial infarction, anxiety, coronary ms3 artery disease. HEART Score: History: Slightly Suspicious (0), ECG: Non specific repolarization disturbance / LBTB / PM (1), Age: > 45 and < 65 years (1), Risk Factors: 1 or 2 risk factors (1), Troponin: > 1 and < 3 x normal limit (1), Total Score = 4. The patient was given aspirin in the Emergency Department. Data reviewed: vital signs, nurses notes, lab test result(s), EKG, radiologic studies, and as a result, I will admit patient. Consideration of Admission/Observation Patient was admitted/placed on observation. Management of patient was discussed with the following: Credit Risk Review Officer: Dr Long- Recommends Heparin ggt and admission under observation.. 03/16 13:02 Order name: Basic Metabolic Panel; Complete Time: 14:39 ms3 03/16 13:02 Order name: CBC with Diff; Complete Time: 14:39 ms3 03/16 13:02 Order name: LFT's; Complete Time: 14:39 ms3 03/16 13:02 Order name: Magnesium; Complete Time: 14:39 ms3 03/16 13:02 Order name: NT PRO-BNP; Complete Time: 14:39 ms3 03/16 13:02 Order name: PT-INR; Complete Time: 14:39 ms3 03/16 13:02 Order name: Troponin HS; Complete Time: 14:39 ms3 03/16 13:11 Order name: UDS ms3 03/16 15:21 Order name: Troponin High Sensitivity; Complete Time: 16:10 ms3 03/16 16:20 Order name: Ptt, Activated; Complete Time: 18:42 ph 03/16 13:02 Order name: XRAY Chest (1 view); Complete Time: 14:39 ms3 03/16 14:57 Order name: CT Head Brain wo Cont; Complete Time: 15:35 ms3 03/16 17:39 Order name: Brain Wo Cont EDMS 03/16 17:39 Order name: CONS Physician Consult EDMS 03/16 13:02 Order name: Cardiac monitoring; Complete Time: 13:12 ms3 03/16 13:02 Order name: EKG - Nurse/Tech; Complete Time: 13:12 ms3 03/16 13:02 Order name: IV Saline Lock; Complete Time: 13:12 ms3 03/16 13:02 Order name: Labs collected and sent; Complete Time: 13:12 ms3 03/16 13:02 Order name: O2 Per Protocol; Complete Time: 13:12 ms3 03/16 13:02 Order name: O2 Sat Monitoring; Complete Time: 13:12 ms3 EC:59 Rate is 82 beats/min. Rhythm is regular. QRS [place] is Normal. NE interval is normal. QRS ms3 interval is normal. Clinical impression: NSR w/ Non-specific ST/T Changes. Interpreted by me. Reviewed by me. Administered Medications: 13:25 Drug: Aspirin PO Chewable Tablet 324 mg PO once; 81 mg tablets x 4 Route: PO; ph 19:19 Follow up: Response: No adverse reaction ph 13:25 Drug: Ativan IVP 1 mg IVP once Route: IVP; Site: right antecubital; ph 19:19 Follow up: Response: No adverse reaction ph 14:09 Drug: hydrALAZINE IVP 10 mg IVP once Route: IVP; Site: right antecubital; ph 19:19 Follow up: Response: No adverse reaction ph 14:35 Drug: morphine IVP or IV 4 mg IVP once over 4 mins Route: IVP; Infused Over: 4 mins; ph Site: right antecubital; 19:18 Follow up: Response: No adverse reaction ph 14:56 Drug: Ativan IVP 1 mg IVP once Route: IVP; Site: right antecubital; ph 19:19 Follow up: Response: No adverse reaction ph 14:56 Drug: Nitroglycerin Sublingual 0.4 mg Sublingual once Route: Sublingual; ph 19:18 Follow up: Response: No adverse reaction; Pain is decreased ph 17:06 Drug: Heparin (ID-Bolus No thrombolytic) - HEParin IVP 60 units/kg IVP once; Max 5000 iw units {Co-Signature: ph (Holley Marroquin RN).} {Note: 5000 units given.} Route: IVP; Site: right antecubital; 19:18 Follow up: Response: No adverse reaction ph 17:06 Drug: Heparin (ID Drip) 12 units/kg/hr - ([place] [address] units, D5W IV 500 ml) IV at iw calculated rate Per protocol; Max initial rate 1000 units/hr {Note: 1000 units/hr.} Route: IV; Rate: calculated rate; Site: right antecubital; 19:18 Follow up: IV Status: Infusion continued upon admission ph Disposition: 16:18 Critical Care:. ms3 Disposition Summary: 03/16/25 16:19 Hospitalization Ordered Notes: Hospitalization Status: Observation ms3 Provider: Raffi Cunha ms3 Location: Telemetry/[facility] (observation) ms3 Problem: new ms3 Symptoms: have improved ms3 Bed/Room Type: Standard ms3 Condition: Fair(03/16/25 16:19) ms3 Room Assignment: 428(03/16/25 17:44) bd Diagnosis - Subsequent non-ST elevation (NSTEMI) myocardial infarction ms3 - Renal insufficiency ms3 - Essential (primary) hypertension ms3 Forms: - Medication Reconciliation Form ms3 - SBAR form ms3 - Leadership Thank You Letter ms3 Critical care time excluding procedures: 16:18 Critical care time: Bedside Care: 40 minutes, Consultation: 10 minutes, Family ms3 Intervention: 10 minutes. Total time: 60 minutes Signatures: Dispatcher [employer] EDMS Mamta Neri bd Ginger Vang RN RN iw Holley Marroquin RN RN ph Taran Garcia, DO ms3 Holley Marroquin RN ph Corrections: (The following items were deleted from the chart) 13:03 13:03 BASIC METABOLIC PANEL+C.LAB.BRZ ordered. EDMS EDMS 13:03 13:03 CBC+H.LAB.BRZ ordered. EDMS EDMS 13:03 13:03 HEPATIC FUNCTION+C.LAB.BRZ ordered. EDMS EDMS 13:03 13:03 MAGNESIUM+C.LAB.BRZ ordered. EDMS EDMS 13:03 13:03 PROBNP+C.LAB.BRZ ordered. EDMS EDMS 13:03 13:03 PROTIME (+INR)+COAG.LAB.BRZ ordered. EDMS EDMS 13:03 13:03 Troponin High Sensitivity+C.LAB.BRZ ordered. EDMS EDMS 13:03 13:03 Chest Single View+RAD.RAD.BRZ ordered. EDMS EDMS 16:19 16:19 Stable ms3 ms3 17:44 16:19 ms3 bd
[2025-03-16] MEDS ORDERED: HEPARIN 5000 UNIT/ML 1 ML VIAL ONE (16:30)
[2025-03-16] MEDS ORDERED: HEPARIN/D5W 25,000 UNIT/500 ML BAG IV ONE (16:30)
[2025-03-16] MEDS ORDERED: HYDROCODONE/APAP 5/325 MG TAB PO PRN (17:34)
[2025-03-16] MEDS ORDERED: ONDANSETRON 4 MG/2 ML VIAL IV PRN (17:42)
--- NOTE | 2025-03-16 17:50 | P.HP ---
Certification for Inpatient Patient admitted to: Observation With expected LOS: <2 Midnights Patient will require the following post-hospital care: None Practitioner: I am a practitioner with admitting privileges, knowledge of patient current condition, hospital course, and medical plan of care. Services: Services provided to patient in accordance with Admission requirements found in Title 42 Section 412.3 of the Code of Federal Regulations <Billy Hall - Last Filed: 03/17/25 03:59> Patient History Date of Service: 03/16/25 Reason for admission: Chest pain History of Present Illness: Patient is a 64-year-old male with a past medical history significant for hypertension, hyperlipidemia, IA, nicotine dependence who presents with complaint of chest pain that has been ongoing intermittently for quite some time now. Patient reported that today he experienced chest pain located in the left chest area. Patient rated pain as 9/10 in severity and described pain as pressure in quality. Patient indicated that chest pain radiates to left shoulder, neck and left arm. Family also reported that patient had difficulty speaking for a while before resolving. Patient also reports right-sided numbness. Patient reported associated signs and symptoms of diaphoresis, shortness of breath and cough. Patient denies any other signs or symptoms. Symptoms are aggravated or relieved by nothing. Patient decided to present to the hospital due to worsening symptoms. Of note, patient reports medication noncompliance. - Past Medical/Surgical History -: Coronary artery disease -: HTN -: HLD -: Nicotine Dependence -: Cardiac catheterization x2 with 2 stents placed - Family History Family History: Reviewed- Non-Contributory - Social History Smoking Status: Current every day smoker Counseled patient to stop smoking for: less than 10 minutes Smoking therapy provided: Yes Patient receptive to therapy: Yes Alcohol use: Yes CD- Drugs: Yes Caffeine use: Yes Place of Residence: Home <Kahlil Halladriennesteven Joao - Last Filed: 03/17/25 03:59> Date of Service: 03/17/25 <Raffi Cunha - Last Filed: 03/17/25 06:43> Allergies No Known Allergies Allergy (Verified 06/12/19 06:31) Home Medications: NK [No Home Meds] 06/12/19 Review of Systems General: Sweats Eyes: Unremarkable ENT: Unremarkable Cardiovascular: Chest Pain Gastrointestinal: Unremarkable Genitourinary: Unremarkable Musculoskeletal: Neck Pain, Shoulder Pain, Arm Pain Neurological: Numbness, Change in Speech Lymphatics: Unremarkable <CarlosradhaBilly banks Joao - Last Filed: 03/17/25 03:59> Physical Examination - Physical Exam General: Alert, In no apparent distress, Oriented x3, Cooperative HEENT: Atraumatic, PERRLA, Mucous membr. moist/pink, EOMI, Sclerae nonicteric Neck: Supple, 2+ carotid pulse no bruit, No LAD, Without JVD or thyroid abnormality Respiratory: Clear to auscultation bilaterally, Normal air movement Cardiovascular: No edema, Regular rate/rhythm, Normal S1 S2 Capillary refill: <2 Seconds Gastrointestinal: Normal bowel sounds, Non-distended, No tenderness Musculoskeletal: No clubbing, No tenderness Integumentary: No rashes, No significant lesion Neurological: Normal speech, Normal tone, Normal affect Lymphatics: No axilla or inguinal lymphadenopathy - Studies Laboratory Data (last 24 hrs) 03/16/25 03/16/25 03/16/25 17:00 13:15 13:15 WBC 8.80 Hgb 18.2 H Hct 51.7 H Plt Count 238 PT 12.5 INR 1.11 APTT 31.7 Sodium Potassium BUN Creatinine Glucose Magnesium Total Bilirubin AST ALT Alkaline Phosphatase 03/16/25 13:15 WBC Hgb Hct Plt Count PT INR APTT Sodium 137 Potassium 4.1 BUN 18 Creatinine 1.37 H Glucose 117 H Magnesium 2.3 Total Bilirubin 1.1 H AST 22 ALT 54 Alkaline Phosphatase 75 <RafaelBilly Joao - Last Filed: 03/17/25 03:59> - Studies Laboratory Data (last 24 hrs) 03/16/25 03/16/25 03/16/25 17:00 13:15 13:15 WBC 8.80 Hgb 18.2 H Hct 51.7 H Plt Count 238 PT 12.5 INR 1.11 APTT 31.7 Sodium Potassium BUN Creatinine Glucose Magnesium Total Bilirubin AST ALT Alkaline Phosphatase 03/16/25 13:15 WBC Hgb Hct Plt Count PT INR APTT Sodium 137 Potassium 4.1 BUN 18 Creatinine 1.37 H Glucose 117 H Magnesium 2.3 Total Bilirubin 1.1 H AST 22 ALT 54 Alkaline Phosphatase 75 <Raffi Cunha - Last Filed: 03/17/25 06:43> Assessment and Plan - Plan NSTEMI. --Serial troponins trending up. --Patient placed on heparin drip. --Cardiology consulted. Recommendations appreciated. --Echocardiogram pending to assess cardiac structures and functions. History of IA\CAD --Continue aspirin and statin. Hyperlipidemia --Continue statin Hypertension. --Poorly controlled. --Continue home medications When available. --Hydralazine as needed for SBP greater 160 mmHg. Nicotine dependence --Patient counseled on tobacco cessation. --Refuses nicotine patch. Right-sided numbness. Transient aphasia. --CT head unremarkable for any acute intracranial abnormality. --MRI brain pending for further evaluation. CKD 3A. --Baseline functions unknown. --Will continue to monitor renal function DVT prophylaxis with heparin drip. Discharge Plan: Home Plan to discharge in: 48 Hours - Advance Directives Does patient have a Living Will: No Does patient have a Durable POA for Healthcare: No - Code Status/Comfort Care Code Status Assessed: Yes Physician Review: Patient Assessed, Agree with Above Assessment and Plan Critical Care: No <Billy Hall - Last Filed: 03/17/25 03:59> Physician Review: Patient Assessed, Agree with Above Assessment and Plan <Raffi Cunha - Last Filed: 03/17/25 06:43>
[2025-03-16] MEDS: HYDRALAZINE HCL 20 MG/ML VIAL IV PRN (21:23)
[2025-03-16] MEDS: ZOLPIDEM TARTRATE 5 MG TABLET PO PRN (21:25)
[2025-03-16 21:54] VITALS: BMI 27.3
[2025-03-16 23:28] LABS: Magnesium 2.1 mg/dL (1.6-2.4); Thyroid Stimulating Hormone 1.66 uIU/mL (0.358-3.740)
[2025-03-16] MEDS ORDERED: HEPARIN/D5W 25,000 UNIT/500 ML BAG IV SCH (23:45)
[2025-03-17] MEDS: NITROGLYCERIN 1 GM PKT TD ONE (03:49)
[2025-03-17] MEDS: MORPHINE 2 MG/ML SYR IV PRN (03:59)
[2025-03-17 04:14] LABS: PT Prothrombin Time 11.6 SECONDS (10-13.0); Protime INR 1.03
[2025-03-17 05:13] LABS: Absolute Lymphocytes (CBC) 2.0 K/uL (0.7-4.9); Hematocrit 43.5 % (39.6-49.0); Hemoglobin 15.7 g/dL (13.6-17.9); MCH 30.6 pg (27.0-35.0); MCHC 36.0 g/dL (32.0-36.0); MCV 84.9 fL (80-100); MPV 8.3 fL (7.6-11.3); Nucleated RBC Absolute Count 0.0 (0-0); Nucleated Red Blood Cells % 0.1 % (0-0); RBC Red Blood Cell Count 5.13 M/uL (4.33-5.43); White Blood Count 8.10 thou/uL (4.3-10.9)
[2025-03-17 05:24] LABS: Anion Gap 10.5 mEq/L (5.0-15.0); BUN Blood Urea Nitrogen 15.0 mg/dL (7-18); Glucose Level 124.0 mg/dL (74-106); HDL Cholesterol 34.0 mg/dL (40-60); LDL Cholesterol, Calculated 127.0 mg/dL (<130); LDL Cholesterol,Calc NonReport 127.0; Potassium 3.5 mEq/L (3.5-5.1)
[2025-03-17] MEDS: POTASSIUM 25 MEQ EFFERV TAB PO ONE (09:00)
[2025-03-17] MEDS: MIDAZOLAM HCL 2 MG/2 ML INJ ONE (10:08)
[2025-03-17] MEDS: NA CHLORIDE 0.9% 500 ML ONE (10:08)
[2025-03-17] MEDS: FENTANYL CITR 100 MCG/2 ML ONE (10:08)
[2025-03-17] MEDS ORDERED: ASPIRIN 325 MG TAB ONE (10:14)
[2025-03-17] MEDS ORDERED: LIDOCAINE 1% 20 ML MDV ONE (10:16)
[2025-03-17] MEDS ORDERED: ATROPINE SULF 1 MG/10 ML SYR IV ONE (10:16)
[2025-03-17] MEDS ORDERED: HEPA 1000U/500MLS 2,000 UNIT/1,000 ML BAG IV ONE (10:16)
[2025-03-17] MEDS ORDERED: HEPARIN 5000 UNIT/ML 1 ML VIAL ONE (10:17)
[2025-03-17] MEDS ORDERED: TICAGRELOR 90 MG TABLET PO ONE (10:17)
[2025-03-17] MEDS ORDERED: CLOPIDOGREL 75 MG TABLET ONE (10:17)
[2025-03-17] MEDS ORDERED: HEPARIN 10,000 UNIT/10 ML VIAL IV ONE (10:55)
--- NOTE | 2025-03-17 11:00 | P.CNS ---
Date of Consult: 03/17/25 Chief Complaint: Chest pain History of Present Illness: Patient with PMH of CAD and stents placement, presented with chest pain, pressure left side and left arm that started yesterday, denies other cardiac symptoms. Allergies No Known Allergies Allergy (Verified 06/12/19 06:31) Home medications list reviewed: Yes Home Medications: NK [No Home Meds] 06/12/19 - Past Medical/Surgical History -: Coronary artery disease -: HTN -: HLD -: Nicotine Dependence -: Cardiac catheterization x2 with 2 stents placed - Social History Smoking Status: Unknown if ever smoked Alcohol use: Yes CD- Drugs: Yes Caffeine use: Yes Place of Residence: Home Review of Systems 10-point ROS is otherwise unremarkable Physical Examination Temp Pulse Resp BP Pulse Ox 97.9 F 79 16 144/87 H 97 03/17/25 08:00 03/17/25 08:00 03/17/25 09:51 03/17/25 08:00 03/17/25 09:51 General: Alert, In no apparent distress HEENT: Atraumatic, PERRLA, Mucous membr. moist/pink, EOMI, Sclerae nonicteric Neck: Supple, 2+ carotid pulse no bruit, No LAD, Without JVD or thyroid abnormality Respiratory: Clear to auscultation bilaterally, Normal air movement Cardiovascular: Regular rate/rhythm, Normal S1 S2 Gastrointestinal: Normal bowel sounds, No tenderness Musculoskeletal: No tenderness Integumentary: No rashes Neurological: Normal gait, Normal speech, Normal tone, Normal affect Lymphatics: No axilla or inguinal lymphadenopathy Laboratory Data (last 24 hrs) 03/16/25 03/16/25 03/16/25 17:00 13:15 13:15 WBC 8.80 Hgb 18.2 H Hct 51.7 H Plt Count 238 PT 12.5 INR 1.11 APTT 31.7 Sodium Potassium BUN Creatinine Glucose Magnesium Total Bilirubin AST ALT Alkaline Phosphatase 03/16/25 13:15 WBC Hgb Hct Plt Count PT INR APTT Sodium 137 Potassium 4.1 BUN 18 Creatinine 1.37 H Glucose 117 H Magnesium 2.3 Total Bilirubin 1.1 H AST 22 ALT 54 Alkaline Phosphatase 75 - Problems (1) Non-STEMI (non-ST elevated myocardial infarction) Current Visit: No Status: Acute Plan: patient with history of PCI, troponin elevated Coronary angiogram ASA 81 mg daily get echo (2) HTN (hypertension) Current Visit: Yes Status: Acute Plan: start coreg 3.125 mg po BID start lisinopril 5 mg daily continue to monitor
--- NOTE | 2025-03-17 13:10 | ECHO ---
HEIGHT: 6 ft 1 in WEIGHT: 207 lb 3.2 oz DATE OF STUDY: 03/17/[address]: Billy Hall 2-DIMENSIONAL: YES M.MODE: YES DOPPLER: YES COLOR FLOW: YES TDS: PORTABLE: YES DEFINITY: BUBBLE STUDY: DIAGNOSIS: NON ST ELEVATION MYOCARDIAL INFRACTION CARDIAC HISTORY: CATHERIZATION: YES SURGERY: PROSTHETIC VALVE: PACEMAKER: MEASUREMENTS (cm) DIASTOLIC (NORMALS) SYSTOLIC (NORMALS) IVSd 1.1 (0.6-1.2) LA Diam 3.3 (1.9-4.0) LVEF 50-55% LVIDd 5.5 (3.5-5.7) LVIDs 3.6 (2.0-3.5) %FS 34% LVPWd 1.2 (0.6-1.2) Ao Diam 4.1 (2.0-3.7) 2 DIMENSIONAL ASSESSMENT: RIGHT ATRIUM: NORMAL LEFT ATRIUM: NORMAL RIGHT VENTRICLE: NORMAL LEFT VENTRICLE: NORMAL TRICUSPID VALVE: TRACE TRICUSPID REGURGITATION MITRAL VALVE: NORMAL PULMONIC VALVE: NORMAL AORTIC VALVE: NORMAL PERICARDIAL EFFUSION: NONE AORTIC ROOT: NORMAL LEFT VENTRICULAR WALL MOTION: MILD GLOBAL HYPOKINESIS DOPPLER/COLOR FLOW: GRADE I DIASTOLIC DYSFUNCTION COMMENTS: 1. MILDLY REDUCED LEFT VENTRICULAR SYSTOLIC FUNCTION, EJECTION FRACTION 50-55%, MILD GLOBAL HYPOKINESIS 2. GRADE I DIASTOLIC DYSFUNCTION TECHNOLOGIST: ARI CHRISTIANSON
--- NOTE | 2025-03-17 14:31 | OP ---
Date of Procedure: 03/17/2025 Surgeon: Osmin Bran Procedures Performed: 1. Selective coronary angiogram. 2. PCI of the proximal to mid LAD with Synergy 3.0 x 12 mm drug-eluting stent. 3. PCI of the mid LAD with Synergy 3.0 x 12 mm drug-eluting stent. Indication For Procedure: The patient with history of CAD, presented with chest pain, found to have [id number] ID. Complications: None. Estimated Blood Loss: Less than 50 cc. Access: Right radial, closed by TR band. Sedation Time: 60 minutes with 2 of Versed and 75 of fentanyl. Description Of Procedure: After risks, and benefits, and alternatives were explained to the patient, patient agreed to proceed with procedure and signed informed consent. The patient was brought back to the medical lab tech instructor, prepped and draped in sterile fashion. Time-out was performed. Sedation was admini stered. Next, right radial access was obtained using ultrasound-guided micropuncture technique. Tig er 4.0 catheter was advanced over a J-wire to the aortic root. Selective angiogram was done using e same catheter. That catheter was later exchanged for an XB LAD 3.5 mm guide. A Runthrough wire wa s advanced across the lesion. GuideLiner support was used, pre-dilated the mid LAD lesion with an NC 2.5 mm balloon and also dilated the proximal to mid LAD lesion with an NC 2.5 mm balloon. Next, Syn ergy 3.0 x 12 was placed across the mid to distal LAD disease and then another Synergy 3.0 x 12 was p laced across the mid LAD disease overlapped with the old stent. Those stents were postdilated with N C 3.5 mm balloon. Final angiogram shows SURYA-3 flow and catheter was removed over a J-wire. Sheath was removed. TR band was applied. Hemostasis was achieved, and the patient was moved to Recovery in stable condition. Findings: 1. Left main normal. 2. LAD; there is a stent extending from the proximal to mid LAD, distal edge got 70% to 80% disease, status post PCI with Synergy 3.0 x 12 mm drug-eluting stent, then mild luminal irregularities followe d by mid LAD 80% disease, status post PCI with Synergy 3.0 x 12 mm drug-eluting stent, then mid to di stal LAD with mild luminal irregularities. 3. Left circ; large, dominant, and gives an OM1 that got 90% disease and then mild luminal irregulari ties, then continued as [place] left circ and then gives another OM2 that is small with mild luminal i rregularities followed by left third OM that is small, diffusely diseased, and then PDA that is small with diffuse significant disease. 4. RCA; ostial, [employer] SAL[employer] ADVISOR, small artery with [id number] collaterals. Assessment And Plan: 1. Significant proximal to mid LAD stent distal edge ISR, status post PCI with Synergy 3.[address] ug-eluting stent. 2. Significant mid LAD disease, status post PCI with Synergy 3.0 x 12 mm drug-eluting stent. 3. Significant OM1 disease, not amenable for PCI as it will jeopardize the main left circ, which is a dominant system. 4. Significant left PDA disease, but it is a small artery. There is no space for putting a stent in it. Plan is to continue aspirin and Brilinta and continue aggressive medical treatment for CAD. JOSE Voice ID: [id number] Report ID: [id number]
--- NOTE | 2025-03-17 14:37 | P.PN ---
Subjective Date of Service: 03/17/25 Chief Complaint: Chest pain Subjective: Improving (Patient status post PCI to LAD with 2 drug-eluting stent.) Physical Examination - Vital Signs Temperature: 97.9 F Blood Pressure: 145/86 Pulse: 79 Respirations: 14 Pulse Ox (%): 97 - Physical Exam General: In no apparent distress, Cooperative HEENT: Atraumatic, Normocephalic Respiratory: Clear to auscultation bilaterally, Normal air movement Cardiovascular: No edema, Normal pulses, Regular rate/rhythm, Normal S1 S2 Neurological: Normal speech - Studies Laboratory Data (last 24 hrs) 03/16/25 17:00 APTT 31.7 Assessment And Plan - Plan Assessment Patient is a 64-year-old male with a known past medical history of cardiac arrest, coronary disease status post PCI to [facility]. Was admitted after he presented with chest pain and near syncope. Patient troponin becka to 10,000 since admission. He is now status post PCI of disease LAD with 2 drug-eluting stent. NSTEMI Coronary artery disease Hypertension Diabetes mellitus Hyperlipidemia Plan: Continue with dual antiplatelet therapy and high intensity statin Follow 2D echo Blood pressure control Patient can be discharged once cleared by cardiology Monitor overnight after PCI Physician Review: Patient Assessed, Agree with Above Assessment and Plan
[2025-03-17 15:35] VITALS: O2SAT 100
[2025-03-17] MEDS: SIMETHICONE 80 MG CHEWABLE TAB PO PRN (17:14)
[2025-03-17] MEDS: TICAGRELOR 90 MG TABLET PO SCH (20:39)
[2025-03-17] MEDS: ATORVASTATIN 40 MG TAB PO SCH (20:39)
[2025-03-17] MEDS: ACETAMINOPHEN 325 MG TABLET PO PRN (21:58)
[2025-03-18] MEDS: ASPIRIN EC 81 MG TAB PO SCH (08:13)
[2025-03-18] MEDS: POTASSIUM CL SA 10 MEQ TAB PO ONE (08:14)
[2025-03-18 08:31] VITALS: BP 147/86; TEMP 97.7
--- NOTE | 2025-03-18 09:35 | P.DS ---
Admission Date: 03/17/25 Discharge Date: 03/18/25 Disposition: ROUTINE DISCHARGE Discharge Condition: GOOD Reason for Admission: Chest pain Hospital Course: Patient is a 64-year-old male with a known past medical history of c ardiac arrest, coronary disease status post PCI to [facility]. He was admitted after he presented with chest pain and near syncope. His troponin becka to 10,000 since admission. He is now status post PCI of diseased LAD with 2 drug-eluting stent. Patient tolerated the procedure well. He is going to be discharged on dual antiplatelet therapy and high intensity statin. Follow-up with cardiology as outpatient. Vital Signs/Physical Exam: Temp Pulse Resp BP Pulse Ox 97.7 F 61 17 147/86 H 95 03/18/25 08:00 03/18/25 08:00 03/18/25 08:00 03/18/25 08:00 03/18/25 08:00 General: Alert, In no apparent distress, Cooperative HEENT: Atraumatic, Normocephalic Respiratory: Clear to auscultation bilaterally, Normal air movement Cardiovascular: No edema, Normal pulses, Regular rate/rhythm, Normal S1 S2 Neurological: Normal speech Laboratory Data at Discharge: WBC 8.10 thou/uL (4.3-10.9) 03/17/25 04:48 Hgb 15.7 g/dL (13.6-17.9) D 03/17/25 04:48 Hct 43.5 % (39.6-49.0) 03/17/25 04:48 Plt Count 212 thou/uL (152-406) 03/17/25 04:48 PT 11.6 SECONDS (10-13.0) 03/17/25 03:40 INR 1.03 03/17/25 03:40 APTT 41.3 SECONDS (27.2-37.4) H 03/17/25 08:58 Sodium 138 mEq/L (136-145) 03/17/25 04:48 Potassium 3.8 mEq/L (3.5-5.1) 03/18/25 06:41 BUN 15 mg/dL (7-18) 03/17/25 04:48 Creatinine 0.84 mg/dL (0.70-1.30) 03/17/25 04:48 Glucose 124 mg/dL (74-106) H 03/17/25 04:48 Phosphorus 2.9 mg/dL (2.5-4.9) 03/16/25 22:25 Magnesium 2.1 mg/dL (1.6-2.4) 03/16/25 22:25 Total Bilirubin 1.1 mg/dL (0.2-1.0) H 03/16/25 13:15 AST 22 U/L (15-37) 03/16/25 13:15 ALT 54 U/L (16-61) 03/16/25 13:15 Alkaline Phosphatase 75 U/L (45-117) 03/16/25 13:15 Triglycerides 117 mg/dL (<150) 03/17/25 04:48 Cholesterol 184 mg/dL (<200) 03/17/25 04:48 HDL Cholesterol 34 mg/dL (40-60) L 03/17/25 04:48 Cholesterol/HDL Ratio 5.41 03/17/25 04:48 Home Medications: Aspirin [Aspirin EC 81 MG] 81 mg PO DAILY #30 tab 03/18/25 Atorvastatin Calcium [Lipitor] 80 mg PO BEDTIME #30 tab 03/18/25 Ticagrelor [Brilinta*] 90 mg PO BID #60 tab 03/18/25 New Medications: Aspirin [Aspirin EC 81 MG] 81 mg PO DAILY #30 tab Ticagrelor [Brilinta*] 90 mg PO BID #60 tab Atorvastatin Calcium [Lipitor] 80 mg PO BEDTIME #30 tab Followup: Osmin Bran MD [ACTIVE - CAN ADMIT] - 1-2 Weeks (Please follow-up with cardiology in 1 to 2 weeks) Sukh Boyd MD [Primary Care Provider] -
== END 2025-03-18 08:32 | disposition home or self-care (01) | DRG 322 ==
LOC: ER 12:59 → ERHOLD 17:35 → 4TH 19:43 → OBSVTOIN 03-17 14:35
PROVIDERS: ADMIT Family Medicine; ATTEND Internal Medicine
PROC: 027035Z Dilation of Coronary Artery, One Artery with Two Drug-eluting Intraluminal Devices, Percutaneous Approach (ICD-10-PCS; principal; 2025-03-17)
PROC: 4A023N7 Measurement of Cardiac Sampling and Pressure, Left Heart, Percutaneous Approach (ICD-10-PCS; 2025-03-17)
PROC: B2111ZZ Fluoroscopy of Multiple Coronary Arteries using Low Osmolar Contrast (ICD-10-PCS; 2025-03-17)
DX: I21.4 Non-ST elevation (NSTEMI) myocardial infarction (principal); R47.01 Aphasia; E78.00 Pure hypercholesterolemia, unspecified; I25.2 Old myocardial infarction; I12.9 Hypertensive chronic kidney disease with stage 1 through stage 4 chronic kidney disease, or unspecified chronic kidney disease; N18.31 Chronic kidney disease, stage 3a; N28.9 Disorder of kidney and ureter, unspecified; I25.10 Atherosclerotic heart disease of native coronary artery without angina pectoris; F17.200 Nicotine dependence, unspecified, uncomplicated; Z95.5 Presence of coronary angioplasty implant and graft; Z91.148 Patient's other noncompliance with medication regimen for other reason; Z79.82 Long term (current) use of aspirin; Z79.899 Other long term (current) drug therapy
CPT/HCPCS: 36415; 70450; 71045; 76937; 80048; 80061; 80076; 83735; 83880; 84100; 84132; 84439; 84443; 84484; 85025; 85347; 85610; 85730; 92928; 93005; 93306; 93454; 96365; 96366; 96375; 99152; 99153; 99285; C1725; C1877; C1893; G0378; J0360; J0461; J1644; J2003; J2250; J2270; J3010; J7040; Q9967